=== PATIENT | male | born 1960 ===

== ENCOUNTER 2017-05-16 11:48 | Inpatient (IN) | payer OTHER ==
[2017-05-16 12:46] LABS: SQUAMOUS EPITHIAL < 1 /hpf (0-5); URINE BILIRUBIN NEGATIVE (NEGATIVE); URINE BLOOD NEGATIVE (NEGATIVE); URINE CLARITY Clear (Clear); URINE COLOR Straw (YELLOW); URINE GLUCOSE (UA) 3+ mg/dL (Normal); URINE LEUKOCYTE ESTERASE NEG Leu/uL (Negative); URINE NITRATE NEGATIVE (NEGATIVE); URINE PROTEIN NEGATIVE (NEGATIVE); URINE UROBILINOGEN NORMAL mg/dL (0.2-1.0)
--- NOTE | 2017-05-16 12:54 | RAD ---
PROCEDURE: CHEST RADIOGRAPH, 1 VIEW HISTORY: chest pain COMPARISON: None available. FINDINGS: LUNGS: Mild bibasilar atelectasis PLEURA: No pneumothorax or pleural fluid seen. CARDIOVASCULAR: Heart size is borderline/mildly enlarged. OSSEOUS STRUCTURES: No significant abnormalities. VISUALIZED UPPER ABDOMEN: Normal. OTHER FINDINGS: None. IMPRESSION: Mild bibasilar atelectasis
[2017-05-16 13:16] LABS: BASO % 0.6 % (0.0-2.0); EOS # 0.1 K/uL (0.0-0.7); EOS % 2.3 % (0.0-4.0); HEMOGLOBIN 16.2 g/dL (12.0-18.0); LYMPH % 20.8 % (20.0-40.0); MEAN CELL VOLUME 94.8 fL (80.0-94.0); MEAN CORPUSCULAR HEMOGLOBIN 33.5 pg (27.0-31.0); MEAN CORPUSCULAR HGB CONC 35.3 g/dL (33.0-37.0); MEAN PLATELET VOLUME 8.3 fL (7.2-11.7); MONO # 0.4 K/uL (0.0-0.8); MONO % 7.3 % (0.0-10.0); NEUT # 3.4 K/uL (1.8-7.0); NRBC % 0.1 % (0.0-2.0); RBC 4.84 Mil/uL (4.40-5.90); RED CELL DISTRIBUTION WIDTH 12.5 % (11.5-14.5); WHITE BLOOD COUNT 4.9 K/uL (4.8-10.8)
[2017-05-16 13:35] LABS: CALCIUM 8.7 mg/dl (8.6-10.4); GFR AFRICAN-AMERICAN > 60; GFR NON-AFRICAN AMERICAN > 60
[2017-05-16 13:36] LABS: ALT/SGPT 39 U/L (21-72); AST/SGOT 35 U/L (17-59); BLOOD UREA NITROGEN 12 mg/dL (9-20)
--- NOTE | 2017-05-16 14:20 | C.PDOC ---
History Of Present Illness 56 year old male presents to ED for evaluation of intermittent chest pain described as dull and left sided for the past several months but worse today. Pt states he feels his heart racing at times. Denies any recent cardiac work up. Otherwise, denies fever, chills, cough, shortness of breath, or recent travel. Chief Complaint (Nursing): Chest Pain History Per: Patient History/Exam Limitations: no limitations Onset/Duration Of Symptoms: Days Current Symptoms Are (Timing): Still Present Quality: Dull Associated Symptoms: denies: Nausea, Dyspnea, Diaphoresis, Syncope Modifying Factors: None Exacerbating Factors: None Alleviating Factors: None Recent travel outside of the [place]: No Additional History Per: Patient Past Medical History Reviewed: Historical Data, Nursing Documentation, Vital Signs Vital Signs: Last Vital Signs Temp 97.5 F L 05/16/17 17:00 Pulse 65 05/16/17 17:00 Resp 20 05/16/17 17:00 BP 159/87 H 05/16/17 17:00 Pulse Ox 98 05/16/17 17:00 - Medical History PMH: HTN Family History: States: Unknown Family Hx - Social History Hx Alcohol Use: Yes Hx Substance Use: No Review Of Systems Except As Marked, All Systems Reviewed And Found Negative. Constitutional: Negative for: Fever, Chills, Sweats Cardiovascular: Positive for: Chest Pain, Palpitations. Negative for: Light Headedness Respiratory: Negative for: Cough, Shortness of Breath, Sputum Gastrointestinal: Negative for: Nausea, Vomiting, Abdominal Pain Neurological: Negative for: Headache, Dizziness Physical Exam - Physical Exam Appears: Non-toxic, No Acute Distress Skin: Normal Color, Warm, Dry Head: Atraumatic, Normacephalic Eye(s): bilateral: Normal Inspection Oral Mucosa: Moist Chest: Symmetrical, No Tenderness Cardiovascular: Rhythm Regular, No Murmur Respiratory: Normal Breath Sounds, No Rales, No Rhonchi, No Wheezing Gastrointestinal/Abdominal: Soft, No Tenderness Extremity: Normal ROM, No Pedal Edema Neurological/Psych: Oriented x3, Normal Speech ED Course And Treatment - Laboratory Results Result Diagrams: 05/16/17 13:12 05/16/17 13:12 O2 Sat by Pulse Oximetry: 96 (RA) Pulse Ox Interpretation: Normal Medical Decision Making Medical Decision Making: Plan: Blood work Urinalysis CXR/EKG Aspirin Reassess Case discussed with Dr. Godoy, request to admit patient under his service. Disposition - Disposition Disposition: HOSPITALIZED Disposition Time: 13:50 Condition: STABLE - Clinical Impression Clinical Impression: Chest pain - Scribe Statement The provider has reviewed the documentation as recorded by the Teresaibed Ochoa All medical record entries made by the Teresaibde were at my direction and personally dictated by me. I have reviewed the chart and agree that the record accurately reflects my personal performance of the history, physical exam, medical decision making, and the department course for this patient. I have also personally directed, reviewed, and agree with the discharge instructions and disposition.
--- NOTE | 2017-05-16 14:47 | CP.PCM.HP ---
History of Present Illness - History of Present Illness History of Present Illness: COMPREHENSIVE HISTORY & PHYSICAL EXAM HPI 56 year old male presents to ED for evaluation of intermittent chest pain described as dull and left sided for the past several months but worse today. Pt states he feels his heart racing at times. Denies any recent cardiac work up. Otherwise, denies fever, chills, cough, PAST HIST. RECENTLY C/O CP ON EXERTION . HTN/T2DM PERSONAL HIST: Smoking. N Alcohol. N Allergy N Travel_- . FAMILY HIST : ROS : Constitutional: Negative for weight change, chills, night sweats, fatigue and usage of assist device. Eyes: Negative for redness, swelling, itching, discharge, vision changes, blurry vision, double vision, glaucoma, cataracts, Ears: Negative for hearing loss, ringing, , tinnitus, vertigo Nose: Negative for rhinorrhea, stuffiness, sniffing, itching, postnasal drip, discoloration, nasal congestion and epistaxis. Throat: Negative for throat clearing, sore throat, hoarseness, difficulty swallowing and difficulty speaking. Respiratory: Negative for cough, , sputum production, chest tightness, wheezing, pleuritic chest pain ,daytime somnolence, chronic cough, hemoptysis, snoring at night, Cardiovascular: Negative for Edema of legs, leg cramps, angina, claudication, , irregular heartbeat, Neurology: Negative for irritability, muscle weakness, numbness and tingling, seizures, tremors, migraines, slurred speech, syncope, memory loss, mood changes , recurrent headaches Gastrointestinal: Negative for difficulty swallowing, diarrhea, constipation, black stools, rectal bleeding, nausea, flatulence, reflux, poor appetite, changes in bowel habits, abdominal pain Genitourinary: Negative for frequent urination, hematuria, discharge, incontinence, urinary retention, frequent UTI, Psychiatric: Negative for depression, anxiety/panic, suicidal tendencies, Musculoskeletal: Negative for swollen joints, back pain, , neck pain, morning stiffness of joints, . Skin: Negative for rash, ulcers, itching, dry skin and pigmented lesions. P/E: Constitutional: Appears stated age and in no apparent distress. Head: Normocephalic. Ears: External ear canals patent without inflammation. Tympanic membranes intact with normal light reflex and landmark. Eyes: Pupils are central, bilaterally equal, symmetrical and reacts to light with normal movements and no icterus or pallor. Nose: External nares are patent. Mucosa is pink Mouth-Throat: Good general appearance and condition. No post-pharyngeal/oropharyngeal erythema and tonsillar hypertrophy. Good dental hygiene. Neck-Lymphatic: Neck is supple with normal ROM, no thyromegaly, lymph nodes or masses. JVD is normal with no carotid bruit. Lungs: Clear to percussion and auscultation with bilateral normal air entry. Cardiovascular: S1 and S2 are normal with no murmurs, gallops and rub. GI Exam: No hepatomegaly. Abdomen is soft and non-tender. No Organomegaly , masses or hernias are evident and bowel sounds are normal and active. Neurology: Higher function and all cranial nerves intact, with no gross motor or sensory deficit. Superficial and deep reflexes are normal with downwards planters. No cerebellar deficit with normal gait. Musculoskeletal: No tender spots with normal curvature of the spine with no swelling or restricted ROM of the small and large joints. Extremities: Homans sign absent. Intact pulses with no pitting edema, calf tenderness or skin color changes. Skin: No rash, eruptions or abnormal skin pigmentation LAB/RADIOLOGY: ASSESMENT : ACUTE CORONARY SYNDROME HTN T2DM PLAN: SEE ORDERS Present on Admission - Present on Admission Any Indicators Present on Admission: No Past Patient History - Past Social History Smoking Status: Never Smoked - CARDIAC Hx Hypertension: Yes - ENDOCRINE/METABOLIC Hx Diabetes Mellitus Type 2: Yes - PSYCHIATRIC Hx Substance Use: No Meds Allergies/Adverse Reactions: Allergies Allergy/AdvReac Type Severity Reaction Status Date / Time No Known Allergies Allergy Verified 05/16/17 11:54 Results - Vital Signs Recent Vital Signs: Last Vital Signs Temp 97.5 F L 05/16/17 11:53 Pulse 66 05/16/17 13:15 Resp 20 05/16/17 13:15 BP 176/95 H 05/16/17 13:15 Pulse Ox 96 05/16/17 14:25 - Labs Result Diagrams: 05/16/17 13:12 05/16/17 13:12 Labs: Laboratory Results - last 24 hr 05/16/17 05/16/17 05/16/17 12:41 13:12 13:12 WBC 4.9 RBC 4.84 Hgb 16.2 Hct 45.9 MCV 94.8 H MCH 33.5 H MCHC 35.3 RDW 12.5 Plt Count 163 MPV 8.3 Neut % (Auto) 69.0 Lymph % (Auto) 20.8 Reeves % (Auto) 7.3 Eos % (Auto) 2.3 Baso % (Auto) 0.6 Neut # (Auto) 3.4 Lymph # (Auto) 1.0 Reeves # (Auto) 0.4 Eos # (Auto) 0.1 Baso # (Auto) 0.0 Sodium 138 Potassium 4.3 Chloride 100 Carbon Dioxide 28 Anion Gap 14 BUN 12 Creatinine 0.8 Est GFR ( Amer) > 60 Est GFR (Non-Af Amer) > 60 Random Glucose 238 H Calcium 8.7 Total Bilirubin 0.9 AST 35 ALT 39 Alkaline Phosphatase 55 Troponin I 0.1090 Total Protein 7.8 Albumin 4.0 Globulin 3.8 Albumin/Globulin Ratio 1.0 Urine Color Straw Urine Clarity Clear Urine pH 8.0 Ur Specific [place] 1.006 Urine Protein Negative Urine Glucose (UA) 3+ H Urine Ketones Negative Urine Blood Negative Urine Nitrate Negative Urine Bilirubin Negative Urine Urobilinogen Normal Ur Leukocyte Esterase Neg Urine WBC (Auto) < 1 Urine RBC (Auto) < 1 Ur Squamous Epith Cells < 1
[2017-05-16] MEDS: (Novolin R) Insulin Human Regular 100 units/ml vial SC SCH ×2 (17:24→21:41)
[2017-05-16 20:16] LABS: CK-MB 2.4 ng/mL (0.0-3.38); TROPONIN I 0.504 ng/mL (0.00-0.120)
[2017-05-16] MEDS: Enoxaparin 30 mg Syringe SC SCH (20:42)
[2017-05-17 04:15] LABS: HDL CHOLESTEROL 39 mg/dL (30-70)
[2017-05-17 04:26] LABS: LDL CHOLESTEROL 126 mg/dL (0-129)
[2017-05-17 05:08] LABS: CK-MB 1.85 ng/mL (0.0-3.38); TROPONIN I 0.296 ng/mL (0.00-0.120)
[2017-05-17] MEDS: (Novolin R) Insulin Human Regular 100 units/ml vial SC SCH ×4 (07:22→21:12)
[2017-05-17 08:42] LABS: CK-MB 1.58 ng/mL (0.0-3.38); TROPONIN I 0.219 ng/mL (0.00-0.120)
[2017-05-17] MEDS: Enoxaparin 30 mg Syringe SC SCH ×2 (09:19→20:28)
[2017-05-17] MEDS ORDERED: Pneumococcal 23-Valent Vaccine IM ONE (10:10)
--- NOTE | 2017-05-17 15:33 | CP.PCM.PN ---
Subjective - Date & Time of Evaluation Date of Evaluation: 05/17/17 Time of Evaluation: 15:32 - Subjective Subjective: ALL SETS OF TNI ARE MILDLY ELEVATED HEMODYNAMICALLY STABLE NO CP EKG NORMAL CHECK ECHO CARDIAC CATH TUES, DUE TO MULTIPLE RISK FACTOR Objective - Vital Signs/Intake and Output Vital Signs (last 24 hours): Temp Pulse Resp BP Pulse Ox 98.9 F 89 20 148/80 97 05/17/17 08:40 05/17/17 08:40 05/17/17 08:40 05/17/17 08:40 05/17/17 08:40 Intake and Output: 05/17/17 05/17/17 11:59 23:59 Intake Total 150 Balance 150 - Medications Medications: Current Medications Aspirin (Aspirin Chewable) 81 mg PO DAILY [facility] Last Admin: 05/17/17 09:19 Dose: 81 mg Atenolol (Tenormin) 50 mg PO DAILY [facility] Last Admin: 05/17/17 09:19 Dose: 50 mg Enoxaparin Sodium (Lovenox) 30 mg SC Q12H [facility] Last Admin: 05/17/17 09:19 Dose: 30 mg Glipizide (Glucotrol) 10 mg PO DAILY [facility] Last Admin: 05/17/17 09:19 Dose: 10 mg Insulin Human Regular (Novolin R) 0 unit SC ACHS [facility] PRN Reason: Protocol Last Admin: 05/17/17 12:15 Dose: Not Given Pneumococcal Polyvalent Vaccine (Pneumovax 23 Vaccine) 0.5 ml IM .ONCE ONE Stop: 05/18/17 14:01 Repaglinide (Prandin) 2 mg PO TID [facility] Last Admin: 05/17/17 13:36 Dose: 2 mg - Labs Labs: 05/16/17 13:12 05/16/17 13:12
[2017-05-18] MEDS: (Novolin R) Insulin Human Regular 100 units/ml vial SC SCH ×4 (07:34→21:57)
[2017-05-18] MEDS: Enoxaparin 30 mg Syringe SC SCH ×2 (08:07→21:58)
[2017-05-18] MEDS ORDERED: Influenza Vaccine 60 mcg/0.5 mL SYR (4YR UP) IM ONE (10:00)
--- NOTE | 2017-05-18 13:30 | CP.PCM.PN ---
Subjective - Date & Time of Evaluation Date of Evaluation: 05/18/17 Time of Evaluation: 13:30 - Subjective Subjective: ALL SETS OF TNI ARE MILDLY ELEVATED HEMODYNAMICALLY STABLE NO CP EKG NORMAL CHECK ECHO CARDIAC CATH ON THU , DUE TO MULTIPLE RISK FACTOR Objective - Vital Signs/Intake and Output Vital Signs (last 24 hours): Temp Pulse Resp BP Pulse Ox 97.8 F 56 L 18 147/89 99 05/18/17 08:00 05/18/17 13:22 05/18/17 08:00 05/18/17 08:00 05/18/17 08:00 Intake and Output: 05/18/17 05/18/17 11:59 23:59 Intake Total 150 Balance 150 - Medications Medications: Current Medications Aspirin (Aspirin Chewable) 81 mg PO DAILY [facility] Last Admin: 05/18/17 09:34 Dose: 81 mg Atenolol (Tenormin) 50 mg PO DAILY [facility] Last Admin: 05/18/17 09:34 Dose: 50 mg Enoxaparin Sodium (Lovenox) 30 mg SC Q12H [facility] Last Admin: 05/18/17 08:07 Dose: 30 mg Glipizide (Glucotrol) 10 mg PO DAILY [facility] Last Admin: 05/18/17 09:34 Dose: 10 mg Insulin Human Regular (Novolin R) 0 unit SC ACHS [facility] PRN Reason: Protocol Last Admin: 05/18/17 12:35 Dose: Not Given Pneumococcal Polyvalent Vaccine (Pneumovax 23 Vaccine) 0.5 ml IM .ONCE ONE Stop: 05/19/17 14:01 Repaglinide (Prandin) 2 mg PO TID [facility] Last Admin: 05/18/17 09:34 Dose: 2 mg - Labs Labs: 05/16/17 13:12 05/16/17 13:12
[2017-05-18] MEDS ORDERED: Pneumococcal 23-Valent Vaccine IM ONE (14:00)
--- NOTE | 2017-05-18 19:56 | CARD ---
APPROVED REPORT EXAM: Two-dimensional and M-mode echocardiogram with Doppler and color Doppler. Other Information Quality : GoodRhythm : INDICATION Chest Pain 2D DIMENSIONS IVSd1.1 (0.7-1.1cm)LVDd4.2 (3.9-5.9cm) PWd1.1 (0.7-1.1cm)LVDs2.5 (2.5-4.0cm) FS (%) 40.4 %LVEF (%)71.5 (>50%) M-Mode DIMENSIONS Left Atrium (MM)3.52 (2.5-4.0cm)Aortic Root3.42 (2.2-3.7cm) Aortic Cusp Exc.1.77 (1.5-2.0cm) Mitral Valve MV E Spuqbkqu75.3cm/sMV A Oemzhboc60.4cm/sE/A ratio1.0 TDI E/Lateral E'0.0E/Medial E'0.0 Tricuspid Valve TR Peak Czmmwfef294kp/sTR Peak Gr.[id number] LEFT VENTRICLE The left ventricle is normal size. There is normal left ventricular wall thickness. The left ventricular function is normal. The left ventricular ejection fraction is within the normal range. No regional wall motion abnormalities noted. The left ventricular diastolic function is normal. No left ventricle thrombus noted on this study. There is no ventricular septal defect visualized. There is no left ventricular aneurysm. There is no mass noted in the left ventricle. RIGHT VENTRICLE The right ventricle is normal size. There is normal right ventricular wall thickness. The right ventricular systolic function is normal. ATRIA The left atrium size is normal. The right atrium size is normal. The interatrial septum is intact with no evidence for an atrial septal defect. AORTIC VALVE The aortic valve is normal in structure and function. No aortic regurgitation is present. There is no aortic valvular stenosis. There is no aortic valvular vegetation. MITRAL VALVE The mitral valve is normal in structure and function. There is no evidence of mitral valve prolapse. There is no mitral valve stenosis. Mitral regurgitation is mild. TRICUSPID VALVE The tricuspid valve is normal in structure and function. There is mild tricuspid regurgitation. Right ventricular systolic pressure is estimated at 30-40 mmHg. There is no tricuspid valve prolapse or vegetation. There is no tricuspid valve stenosis. PULMONIC VALVE The pulmonary valve is normal in structure and function. There is no pulmonic valvular regurgitation. There is no pulmonic valvular stenosis. GREAT VESSELS The aortic root is normal in size. The ascending aorta is normal in size. The pulmonary artery is normal. The IVC is normal in size and collapses >50% with inspiration. PERICARDIAL EFFUSION The pericardium appears normal. There is no pleural effusion. <Conclusion> The left ventricular function is normal. The left ventricular ejection fraction is within the normal range. No regional wall motion abnormalities noted. Mitral regurgitation is mild.
[2017-05-19] MEDS: (Novolin R) Insulin Human Regular 100 units/ml vial SC SCH ×4 (07:20→22:00)
[2017-05-19] MEDS: Enoxaparin 30 mg Syringe SC SCH ×2 (08:25→21:25)
--- NOTE | 2017-05-19 13:42 | CP.PCM.PN ---
Subjective - Date & Time of Evaluation Date of Evaluation: 05/19/17 Time of Evaluation: 13:42 - Subjective Subjective: PT STABLE FOR CARDIAC CATH IN AM ECHO NORMAL EF Objective - Vital Signs/Intake and Output Vital Signs (last 24 hours): Temp Pulse Resp BP Pulse Ox 97.3 F L 59 L 20 144/86 97 05/19/17 07:40 05/19/17 08:00 05/19/17 07:40 05/19/17 07:40 05/19/17 07:40 - Medications Medications: Current Medications Aspirin (Aspirin Chewable) 81 mg PO DAILY [facility] Last Admin: 05/19/17 09:56 Dose: 81 mg Atenolol (Tenormin) 50 mg PO DAILY [facility] Last Admin: 05/19/17 09:56 Dose: 50 mg Enoxaparin Sodium (Lovenox) 30 mg SC Q12H [facility] Last Admin: 05/19/17 08:25 Dose: 30 mg Glipizide (Glucotrol) 10 mg PO DAILY [facility] Last Admin: 05/19/17 09:56 Dose: 10 mg Insulin Human Regular (Novolin R) 0 unit SC [facility] PRN Reason: Protocol Last Admin: 05/19/17 12:31 Dose: Not Given Pneumococcal Polyvalent Vaccine (Pneumovax 23 Vaccine) 0.5 ml IM .ONCE ONE Stop: 05/20/17 14:01 Repaglinide (Prandin) 2 mg PO TID [facility] Last Admin: 05/19/17 09:56 Dose: 2 mg - Labs Labs: 05/16/17 13:12 05/16/17 13:12
[2017-05-19] MEDS ORDERED: Pneumococcal 23-Valent Vaccine IM ONE (14:00)
[2017-05-19] MEDS ORDERED: Influenza Vaccine 60 mcg/0.5 mL SYR (4YR UP) IM ONE (14:00)
[2017-05-20] MEDS: (Novolin R) Insulin Human Regular 100 units/ml vial SC SCH ×4 (07:17→22:00)
[2017-05-20] MEDS: Enoxaparin 30 mg Syringe SC SCH ×2 (08:52→21:38)
--- NOTE | 2017-05-20 13:14 | CP.PCM.PN ---
Subjective - Date & Time of Evaluation Date of Evaluation: 05/20/17 Time of Evaluation: 13:14 - Subjective Subjective: PT. SIGNED INFORMED CONSENT Objective - Vital Signs/Intake and Output Vital Signs (last 24 hours): Temp Pulse Resp BP Pulse Ox 97.2 F L 71 20 130/80 96 05/20/17 08:42 05/20/17 08:42 05/20/17 08:42 05/20/17 08:42 05/20/17 08:42 - Medications Medications: Current Medications Aspirin (Aspirin Chewable) 81 mg PO DAILY [facility] Last Admin: 05/20/17 09:24 Dose: 81 mg Atenolol (Tenormin) 50 mg PO DAILY [facility] Last Admin: 05/20/17 09:24 Dose: 50 mg Enoxaparin Sodium (Lovenox) 30 mg SC Q12H [facility] Last Admin: 05/20/17 08:52 Dose: Not Given Glipizide (Glucotrol) 10 mg PO DAILY [facility] Last Admin: 05/20/17 09:25 Dose: Not Given Insulin Human Regular (Novolin R) 0 unit SC [facility] PRN Reason: Protocol Last Admin: 05/20/17 07:17 Dose: Not Given Pneumococcal Polyvalent Vaccine (Pneumovax 23 Vaccine) 0.5 ml IM .ONCE ONE Stop: 05/20/17 14:01 Repaglinide (Prandin) 2 mg PO TID [facility] Last Admin: 05/20/17 09:25 Dose: 2 mg - Labs Labs: 05/16/17 13:12 05/16/17 13:12
[2017-05-20] MEDS ORDERED: Influenza Vaccine 60 mcg/0.5 mL SYR (4YR UP) IM ONE (14:00)
[2017-05-20] MEDS ORDERED: Pneumococcal 23-Valent Vaccine IM ONE (14:00)
[2017-05-20] MEDS ORDERED: Midazolam 2 MG/2 ML VIAL ONE (16:11)
[2017-05-20] MEDS ORDERED: Iodixanol 320 MG/ML 200 ML BOTTLE IV ONE (16:12)
[2017-05-20] MEDS ORDERED: DiphenhydrAMINE 50 mg/ml Inj ONE (16:20)
[2017-05-20 16:28] LABS: INR 1.1; PROTHROMBIN TIME 12.2 SECONDS (9.7-12.2)
[2017-05-21] MEDS: (Novolin R) Insulin Human Regular 100 units/ml vial SC SCH ×4 (07:33→21:59)
--- NOTE | 2017-05-21 07:46 | CARDCATH ---
PROCEDURE DATE: 05/20/2017 CARDIAC CATH REPORT HISTORY: This is an male who was admitted for chest pain and his cardiac TNI enzymes were positive. There were no any EKG changes. The patient underwent left heart cath, left heart cath was done to the right femoral artery, right femoral artery was cleaned and draped, #6 introducer sheath was inserted and Angio-Seal was used post cath. Jessica was used for right and left, and pigtail for the left angiogram. Left main is a normal vessel. There is large ramus artery, approximately has about 90% blockage. There is a mid LAD lesion which is about 80% a long segment, the rest of the LAD appears normal, the branches are normal. Circumflex is a normal vessel with no any lesions in the main trunk or the branches. Right coronary in the mid lesion, there is a long segment about 80% to 85% blockage. The rest of the right coronary is normal. LV gram shows normal wall motion with ejection fraction of about 50%. IMPRESSION: Three-vessel coronary artery disease involved in the ramus. PLAN: We will discuss with angioplasty for probably stenting and ballooning. Karla Godoy MD
[2017-05-21] MEDS: Enoxaparin 30 mg Syringe SC SCH ×2 (08:43→20:32)
--- NOTE | 2017-05-21 12:05 | CARD ---
APPROVED REPORT EKG Measurement Heart [id number] NM [id number] <Conclusion> Normal sinus rhythm Normal ECG
--- NOTE | 2017-05-21 13:36 | CP.PCM.PN ---
Subjective - Date & Time of Evaluation Date of Evaluation: 05/21/17 Time of Evaluation: 13:34 - Subjective Subjective: S/P LHC 3 V CAD WITH N EF PT NEEDS STAGED ANGIOPLASTY/STENT PT DECLINED FURTHER PROCEDURE UNTILL ANESTHESIA IS GIVEN DR. CLAY ARRANGING THE PROCEDURE IN [facility] NO FURTHER CP GROIN OK Objective - Vital Signs/Intake and Output Vital Signs (last 24 hours): Temp Pulse Resp BP Pulse Ox 98.0 F 61 20 129/85 98 05/21/17 08:28 05/21/17 11:28 05/21/17 08:28 05/21/17 08:28 05/21/17 08:28 - Medications Medications: Current Medications Aspirin (Aspirin Chewable) 81 mg PO DAILY [facility] Last Admin: 05/21/17 09:06 Dose: 81 mg Atenolol (Tenormin) 50 mg PO DAILY [facility] Last Admin: 05/21/17 09:06 Dose: 50 mg Enoxaparin Sodium (Lovenox) 30 mg SC Q12H [facility] Last Admin: 05/21/17 08:43 Dose: 30 mg Glipizide (Glucotrol) 10 mg PO DAILY [facility] Last Admin: 05/21/17 09:06 Dose: 10 mg Insulin Human Regular (Novolin R) 0 unit SC ACHS [facility] PRN Reason: Protocol Last Admin: 05/21/17 12:13 Dose: Not Given Pneumococcal Polyvalent Vaccine (Pneumovax 23 Vaccine) 0.5 ml IM .ONCE ONE Stop: 05/21/17 14:01 Last Admin: 05/21/17 13:22 Dose: 0.5 ml Repaglinide (Prandin) 2 mg PO TID [facility] Last Admin: 05/21/17 13:18 Dose: 2 mg - Labs Labs: 05/16/17 13:12 05/16/17 13:12 PT 12.2 SECONDS (9.7-12.2) 05/20/17 16:12 INR 1.1 05/20/17 16:12 APTT 32 SECONDS (21-34) 05/20/17 16:12
[2017-05-21] MEDS ORDERED: Influenza Vaccine 60 mcg/0.5 mL SYR (4YR UP) IM ONE (14:00)
[2017-05-21] MEDS ORDERED: Pneumococcal 23-Valent Vaccine IM ONE (14:00)
[2017-05-22] MEDS: (Novolin R) Insulin Human Regular 100 units/ml vial SC SCH ×4 (08:02→22:11)
[2017-05-22] MEDS: Enoxaparin 30 mg Syringe SC SCH ×2 (08:32→21:47)
--- NOTE | 2017-05-22 13:37 | CP.PCM.PN ---
Subjective - Date & Time of Evaluation Date of Evaluation: 05/22/17 Time of Evaluation: 13:37 - Subjective Subjective: S/P LHC 3 V CAD WITH N EF PT NEEDS STAGED ANGIOPLASTY/STENT PT DECLINED FURTHER PROCEDURE UNTILL ANESTHESIA IS GIVEN DR. CLAY ARRANGING THE PROCEDURE IN [facility] NO FURTHER CP GROIN [place] Objective - Vital Signs/Intake and Output Vital Signs (last 24 hours): Temp Pulse Resp BP Pulse Ox 97.9 F 68 20 136/82 95 05/22/17 08:11 05/22/17 09:10 05/22/17 08:11 05/22/17 09:10 05/22/17 08:11 - Medications Medications: Current Medications Aspirin (Aspirin Chewable) 81 mg PO DAILY [facility] Last Admin: 05/22/17 09:14 Dose: 81 mg Atenolol (Tenormin) 50 mg PO DAILY [facility] Last Admin: 05/22/17 09:14 Dose: 50 mg Enoxaparin Sodium (Lovenox) 30 mg SC Q12H [facility] Last Admin: 05/22/17 08:32 Dose: 30 mg Glipizide (Glucotrol) 10 mg PO DAILY [facility] Last Admin: 05/22/17 09:14 Dose: 10 mg Insulin Human Regular (Novolin R) 0 unit SC ACHS [facility] PRN Reason: Protocol Last Admin: 05/22/17 12:22 Dose: Not Given Repaglinide (Prandin) 2 mg PO TID [facility] Last Admin: 05/22/17 13:19 Dose: 2 mg - Labs Labs: 05/16/17 13:12 05/16/17 13:12 PT 12.2 SECONDS (9.7-12.2) 05/20/17 16:12 INR 1.1 05/20/17 16:12 APTT 32 SECONDS (21-34) 05/20/17 16:12
[2017-05-23] MEDS: (Novolin R) Insulin Human Regular 100 units/ml vial SC SCH ×4 (07:24→22:29)
[2017-05-23] MEDS: Enoxaparin 30 mg Syringe SC SCH ×2 (07:51→20:54)
--- NOTE | 2017-05-23 14:03 | CP.PCM.PN ---
Subjective - Date & Time of Evaluation Date of Evaluation: 05/23/17 Time of Evaluation: 14:03 - Subjective Subjective: S/P LHC 3 V CAD WITH N EF PT NEEDS STAGED ANGIOPLASTY/STENT PT DECLINED FURTHER PROCEDURE UNTILL ANESTHESIA IS GIVEN DR. CLAY ARRANGING THE PROCEDURE IN [facility] NO FURTHER CP GROIN OK Objective - Vital Signs/Intake and Output Vital Signs (last 24 hours): Temp Pulse Resp BP Pulse Ox 97.8 F 59 L 20 125/78 95 05/23/17 08:32 05/23/17 08:32 05/23/17 08:32 05/23/17 08:32 05/23/17 08:32 - Medications Medications: Current Medications Aspirin (Aspirin Chewable) 81 mg PO DAILY [facility] Last Admin: 05/23/17 09:32 Dose: 81 mg Atenolol (Tenormin) 50 mg PO DAILY [facility] Last Admin: 05/23/17 09:32 Dose: 50 mg Enoxaparin Sodium (Lovenox) 30 mg SC Q12H [facility] Last Admin: 05/23/17 07:51 Dose: 30 mg Glipizide (Glucotrol) 10 mg PO DAILY [facility] Last Admin: 05/23/17 09:32 Dose: 10 mg Insulin Human Regular (Novolin R) 0 unit SC ACHS [facility] PRN Reason: Protocol Last Admin: 05/23/17 12:46 Dose: Not Given Repaglinide (Prandin) 2 mg PO TID [facility] Last Admin: 05/23/17 13:50 Dose: 2 mg - Labs Labs: 05/16/17 13:12 05/16/17 13:12 PT 12.2 SECONDS (9.7-12.2) 05/20/17 16:12 INR 1.1 05/20/17 16:12 APTT 32 SECONDS (21-34) 05/20/17 16:12
[2017-05-23 14:08] LABS: BLOOD UREA NITROGEN 13 mg/dL (9-20); CALCIUM 8.7 mg/dl (8.6-10.4); GFR AFRICAN-AMERICAN > 60; GFR NON-AFRICAN AMERICAN > 60
[2017-05-24] MEDS: (Novolin R) Insulin Human Regular 100 units/ml vial SC SCH ×3 (08:39→17:51)
--- NOTE | 2017-05-24 12:16 | CP.PCM.CON ---
History of Present Illness - History of Present Illness History of Present Illness: Interventional Cardiology Consultation for PCI Patient s/p Cardiac Cath for Non STEMI History Of Present Illness 56 year old male originally presented to ED for evaluation of intermittent chest pain described as dull and left sided for the past several months but worse today. Pt states he feels his heart racing at times. Denied any prior cardiac work up before this admission. Otherwise, denies fever, chills, cough, shortness of breath, or recent travel. - Medical History PMH: HTN Family History: States: Unknown Family Hx - Social History Hx Alcohol Use: Yes Hx Substance Use: No Review Of Systems Except As Marked, All Systems Reviewed And Found Negative. Constitutional: Negative for: Fever, Chills, Sweats Cardiovascular: Positive for: Chest Pain, Palpitations. Negative for: Light Headedness Respiratory: Negative for: Cough, Shortness of Breath, Sputum Gastrointestinal: Negative for: Nausea, Vomiting, Abdominal Pain Neurological: Negative for: Headache, Dizziness Physical Exam - Physical Exam Appears: Non-toxic, No Acute Distress Skin: Normal Color, Warm, Dry Head: Atraumatic, Normacephalic Eye(s): bilateral: Normal Inspection Oral Mucosa: Moist Chest: Symmetrical, No Tenderness Cardiovascular: Rhythm Regular, No Murmur Respiratory: Normal Breath Sounds, No Rales, No Rhonchi, No Wheezing Gastrointestinal/Abdominal: Soft, No Tenderness Extremity: Normal ROM, No Pedal Edema Neurological/Psych: Oriented x3, Normal Speech Past Patient History - Past Medical History & Family History Past Medical History?: Yes - Past Social History Smoking Status: Never Smoked - CARDIAC Hx Hypertension: Yes - PULMONARY Hx Respiratory Disorders: No - NEUROLOGICAL Hx Neurological Disorder: No - HEENT Hx HEENT Problems: No - RENAL Hx Chronic Kidney Disease: No - ENDOCRINE/METABOLIC Hx Endocrine Disorders: Yes Hx Diabetes Mellitus Type 2: Yes - HEMATOLOGICAL/ONCOLOGICAL Hx Blood Disorders: No - INTEGUMENTARY Hx Dermatological Problems: No - MUSCULOSKELETAL/RHEUMATOLOGICAL Hx Musculoskeletal Disorders: No Hx Falls: No - GASTROINTESTINAL Hx Gastrointestinal Disorders: No - GENITOURINARY/GYNECOLOGICAL Hx Genitourinary Disorders: No - PSYCHIATRIC Hx Substance Use: No - SURGICAL HISTORY Hx Surgeries: Yes Other/Comment: Janneth 1987 - ANESTHESIA Hx Anesthesia: Yes Hx Anesthesia Reactions: No Meds Allergies/Adverse Reactions: Allergies Allergy/AdvReac Type Severity Reaction Status Date / Time No Known Allergies Allergy Verified 05/16/17 11:54 - Medications Medications: Current Medications Alprazolam (Xanax) 0.25 mg PO TID PRN PRN Reason: Anxiety Stop: 05/30/17 18:12 Last Admin: 05/23/17 20:54 Dose: 0.25 mg Aspirin (Aspirin Chewable) 81 mg PO DAILY [facility] Last Admin: 05/24/17 09:59 Dose: 81 mg Atenolol (Tenormin) 25 mg PO DAILY [facility] Clopidogrel Bisulfate (Plavix) 75 mg PO DAILY [facility] Famotidine (Pepcid) 20 mg PO DAILY [facility] Glipizide (Glucotrol) 10 mg PO DAILY [facility] Last Admin: 05/24/17 10:00 Dose: Not Given Heparin Sodium (Porcine) (Heparin) 5,000 units SC Q8 [facility] Sodium Chloride (Sodium Chloride 0.9%) 1,000 mls @ 70 mls/hr IV .[id number] [facility] Stop: 05/25/17 23:59 Insulin Human Regular (Novolin R) 0 unit SC ACHS [facility] PRN Reason: Protocol Last Admin: 05/24/17 08:39 Dose: Not Given Losartan Potassium (Cozaar) 25 mg PO DAILY [facility] Repaglinide (Prandin) 2 mg PO TID [facility] Last Admin: 05/24/17 09:57 Dose: Not Given Rosuvastatin Calcium (Crestor) 20 mg PO [facility] Results - Vital Signs Recent Vital Signs: Last Vital Signs Temp 97.8 F 05/23/17 16:56 Pulse 52 L 05/24/17 04:11 Resp 20 05/23/17 16:56 BP 129/83 05/23/17 16:56 Pulse Ox 98 05/23/17 16:56 - Labs Result Diagrams: 05/16/17 13:12 05/23/17 13:50 Labs: Laboratory Results - last 24 hr 05/23/17 05/23/17 05/23/17 13:50 16:48 22:22 Sodium 137 Potassium 3.7 Chloride 98 Carbon Dioxide 30 Anion Gap 13 BUN 13 Creatinine 1.0 Est GFR ( Amer) > 60 Est GFR (Non-Af Amer) > 60 POC Glucose (mg/dL) 74 100 Random Glucose 128 H Calcium 8.7 05/24/17 05/24/17 06:39 11:37 Sodium Potassium Chloride Carbon Dioxide Anion Gap BUN Creatinine Est GFR ( Amer) Est GFR (Non-Af Amer) POC Glucose (mg/dL) 104 167 H Random Glucose Calcium Assessment & Plan - Assessment and Plan (Free Text) Assessment: 1. Acute Coronary syndrome s/p Cath 2. CAD Triple vessel focal disease. Normal LV function 3. HTN 4. DM 2 5. Hyperlipidemia Patient refuses Open heart surgery. The lesions are focal and easily amenable for angioplasty and stenting. Patient is also young. As per patient wishes and anatomical favorability and age of the patient will pursue PCI Patient scheduled for PCI at 3pm at [place] on Thursday
[2017-05-24] MEDS: Sodium Chloride 0.9% 1,000 ML IV SCH (13:00)
--- NOTE | 2017-05-24 15:31 | CP.PCM.PN ---
Subjective - Date & Time of Evaluation Date of Evaluation: 05/24/17 Time of Evaluation: 15:25 - Subjective Subjective: HAD PALPITATION LAST NITE REVIEW OF THE RHYTHM SHOWED A. FIB WITH RVR MOST OF BASE LINE PT IS S JP PT ON D/C WILL NEED DAPT AND NOAC [id number] 2 Objective - Vital Signs/Intake and Output Vital Signs (last 24 hours): Temp Pulse Resp BP Pulse Ox 97.8 F 52 L 20 129/83 98 05/23/17 16:56 05/24/17 04:11 05/23/17 16:56 05/23/17 16:56 05/23/17 16:56 - Medications Medications: Current Medications Alprazolam (Xanax) 0.25 mg PO TID PRN PRN Reason: Anxiety Stop: 05/30/17 18:12 Last Admin: 05/23/17 20:54 Dose: 0.25 mg Aspirin (Aspirin Chewable) 81 mg PO DAILY [facility] Last Admin: 05/24/17 09:59 Dose: 81 mg Atenolol (Tenormin) 25 mg PO DAILY [facility] Clopidogrel Bisulfate (Plavix) 75 mg PO DAILY [facility] Last Admin: 05/24/17 14:26 Dose: 75 mg Famotidine (Pepcid) 20 mg PO DAILY [facility] Last Admin: 05/24/17 14:26 Dose: 20 mg Glipizide (Glucotrol) 10 mg PO DAILY [facility] Last Admin: 05/24/17 10:00 Dose: Not Given Heparin Sodium (Porcine) (Heparin) 5,000 units SC Q8 [facility] Last Admin: 05/24/17 14:34 Dose: 5,000 units Sodium Chloride (Sodium Chloride 0.9%) 1,000 mls @ 70 mls/hr IV .[id number] [facility] Stop: 05/25/17 23:59 Last Admin: 05/24/17 13:00 Dose: 70 mls/hr Insulin Human Regular (Novolin R) 0 unit SC ACHS [facility] PRN Reason: Protocol Last Admin: 05/24/17 12:30 Dose: Not Given Losartan Potassium (Cozaar) 25 mg PO DAILY [facility] Repaglinide (Prandin) 2 mg PO TID [facility] Last Admin: 05/24/17 14:27 Dose: Not Given Rosuvastatin Calcium (Crestor) 20 mg PO HS [facility] - Labs Labs: 05/16/17 13:12 05/23/17 13:50 PT 12.2 SECONDS (9.7-12.2) 05/20/17 16:12 INR 1.1 05/20/17 16:12 APTT 32 SECONDS (21-34) 05/20/17 16:12
--- NOTE | 2017-05-24 19:49 | CP.PCM.PN ---
Subjective - Date & Time of Evaluation Date of Evaluation: 05/24/17 Time of Evaluation: 16:20 - Subjective Subjective: Patient seen and evaluated Denies chest pain and dyspnea For PCI tomorrow Patient signed EMTALA form Objective - Vital Signs/Intake and Output Vital Signs (last 24 hours): Temp Pulse Resp BP Pulse Ox 97.8 F 65 20 127/82 95 05/24/17 17:30 05/24/17 17:30 05/24/17 17:30 05/24/17 17:30 05/24/17 17:30 - Medications Medications: Current Medications Alprazolam (Xanax) 0.25 mg PO TID PRN PRN Reason: Anxiety Stop: 05/30/17 18:12 Last Admin: 05/23/17 20:54 Dose: 0.25 mg Aspirin (Aspirin Chewable) 81 mg PO DAILY [facility] Last Admin: 05/24/17 09:59 Dose: 81 mg Atenolol (Tenormin) 25 mg PO DAILY [facility] Clopidogrel Bisulfate (Plavix) 75 mg PO DAILY [facility] Last Admin: 05/24/17 14:26 Dose: 75 mg Famotidine (Pepcid) 20 mg PO DAILY [facility] Last Admin: 05/24/17 14:26 Dose: 20 mg Glipizide (Glucotrol) 10 mg PO DAILY [facility] Last Admin: 05/24/17 10:00 Dose: Not Given Heparin Sodium (Porcine) (Heparin) 5,000 units SC Q8 [facility] Last Admin: 05/24/17 14:34 Dose: 5,000 units Sodium Chloride (Sodium Chloride 0.9%) 1,000 mls @ 70 mls/hr IV .[id number] [facility] Stop: 05/25/17 23:59 Last Admin: 05/24/17 13:00 Dose: 70 mls/hr Insulin Human Regular (Novolin R) 0 unit SC ACHS [facility] PRN Reason: Protocol Last Admin: 05/24/17 17:51 Dose: Not Given Losartan Potassium (Cozaar) 25 mg PO DAILY [facility] Repaglinide (Prandin) 2 mg PO TID [facility] Last Admin: 05/24/17 17:52 Dose: Not Given Rosuvastatin Calcium (Crestor) 20 mg PO HS [facility] - Labs Labs: 05/16/17 13:12 05/23/17 13:50 PT 12.2 SECONDS (9.7-12.2) 05/20/17 16:12 INR 1.1 05/20/17 16:12 APTT 32 SECONDS (21-34) 05/20/17 16:12
[2017-05-25] MEDS: Sodium Chloride 0.9% 1,000 ML IV SCH (06:08)
[2017-05-25 07:35] LABS: HEMOGLOBIN 14.6 g/dL (12.0-18.0); MEAN CELL VOLUME 95.7 fL (80.0-94.0); MEAN CORPUSCULAR HEMOGLOBIN 32.8 pg (27.0-31.0); MEAN CORPUSCULAR HGB CONC 34.2 g/dL (33.0-37.0); MEAN PLATELET VOLUME 8.5 fL (7.2-11.7); RBC 4.46 Mil/uL (4.40-5.90); RED CELL DISTRIBUTION WIDTH 12.2 % (11.5-14.5); WHITE BLOOD COUNT 4.3 K/uL (4.8-10.8)
[2017-05-25 07:37] LABS: BLOOD UREA NITROGEN 13 mg/dL (9-20); CALCIUM 8.2 mg/dl (8.6-10.4); GFR AFRICAN-AMERICAN > 60; GFR NON-AFRICAN AMERICAN > 60; HDL CHOLESTEROL 28 mg/dL (30-70)
[2017-05-25 07:38] LABS: INR 1.1; PROTHROMBIN TIME 12.2 SECONDS (9.7-12.2)
[2017-05-25 07:48] LABS: LDL CHOLESTEROL 108 mg/dL (0-129)
[2017-05-25] MEDS: (Novolin R) Insulin Human Regular 100 units/ml vial SC SCH ×4 (08:17→22:00)
--- NOTE | 2017-05-25 14:00 | CP.PCM.PN ---
Subjective - Date & Time of Evaluation Date of Evaluation: 05/25/17 Time of Evaluation: 14:00 - Subjective Subjective: PT OUT OF FLOOR FOR ANGIOPLASTY CHART REVIEWED NO FURTHER A. FIB Objective - Vital Signs/Intake and Output Vital Signs (last 24 hours): Temp Pulse Resp BP Pulse Ox 97.7 F 62 20 167/90 H 97 05/25/17 12:50 05/25/17 13:45 05/25/17 12:50 05/25/17 13:45 05/25/17 12:50 - Medications Medications: Current Medications Alprazolam (Xanax) 0.25 mg PO TID PRN PRN Reason: Anxiety Stop: 05/30/17 18:12 Last Admin: 05/24/17 21:36 Dose: 0.25 mg Aspirin (Aspirin Chewable) 81 mg PO DAILY [facility] Last Admin: 05/25/17 10:41 Dose: 81 mg Atenolol (Tenormin) 25 mg PO DAILY [facility] Last Admin: 05/25/17 10:41 Dose: 25 mg Clopidogrel Bisulfate (Plavix) 75 mg PO DAILY [facility] Last Admin: 05/25/17 10:41 Dose: 75 mg Famotidine (Pepcid) 20 mg PO DAILY [facility] Last Admin: 05/25/17 10:42 Dose: Not Given Glipizide (Glucotrol) 10 mg PO DAILY [facility] Last Admin: 05/25/17 10:42 Dose: Not Given Heparin Sodium (Porcine) (Heparin) 5,000 units SC Q8 [facility] Last Admin: 05/24/17 21:36 Dose: 5,000 units Sodium Chloride (Sodium Chloride 0.9%) 1,000 mls @ 70 mls/hr IV .[id number] [facility] Stop: 05/25/17 23:59 Last Admin: 05/25/17 06:08 Dose: 70 mls/hr Insulin Human Regular (Novolin R) 0 unit SC ACHS [facility] PRN Reason: Protocol Last Admin: 05/25/17 12:12 Dose: Not Given Losartan Potassium (Cozaar) 25 mg PO DAILY [facility] Last Admin: 05/25/17 10:41 Dose: 25 mg Repaglinide (Prandin) 2 mg PO TID [facility] Last Admin: 05/25/17 10:41 Dose: Not Given Rosuvastatin Calcium (Crestor) 20 mg PO HS [facility] Last Admin: 05/24/17 21:37 Dose: 20 mg - Labs Labs: 05/25/17 07:04 05/25/17 07:04 PT 12.2 SECONDS (9.7-12.2) 05/25/17 07:04 INR 1.1 05/25/17 07:04 APTT 32 SECONDS (21-34) 05/20/17 16:12
[2017-05-25] MEDS ORDERED: HYDROmorphone 0.5 mg/0.5 ml ISec IVP PRN (17:40)
--- NOTE | 2017-05-25 17:49 | CP.PCM.PN ---
Subjective - Date & Time of Evaluation Date of Evaluation: 05/25/17 Time of Evaluation: 17:47 - Subjective Subjective: Patient s/p LAD and Ramus stenting (JORGE) RCA stent as out patient ASA 81, Plavix 75, Statins, B blockers and ARBs IVF for 12 hrs Resume diet OOB to ambulate after 10pm tonight Possible d/c tomorrow or day after Paraxysmal A Fib (Will d/w Dr. Godoy) Objective - Vital Signs/Intake and Output Vital Signs (last 24 hours): Temp Pulse Resp BP Pulse Ox 97.7 F 60 20 135/85 99 05/25/17 14:20 05/25/17 14:20 05/25/17 14:20 05/25/17 14:20 05/25/17 14:20 - Medications Medications: Current Medications Alprazolam (Xanax) 0.25 mg PO TID PRN PRN Reason: Anxiety Stop: 05/30/17 18:12 Last Admin: 05/24/17 21:36 Dose: 0.25 mg Aspirin (Aspirin Chewable) 81 mg PO DAILY [facility] Last Admin: 05/25/17 10:41 Dose: 81 mg Atenolol (Tenormin) 25 mg PO DAILY [facility] Last Admin: 05/25/17 10:41 Dose: 25 mg Clopidogrel Bisulfate (Plavix) 75 mg PO DAILY [facility] Last Admin: 05/25/17 10:41 Dose: 75 mg Famotidine (Pepcid) 20 mg PO DAILY [facility] Last Admin: 05/25/17 10:42 Dose: Not Given Glipizide (Glucotrol) 10 mg PO DAILY [facility] Last Admin: 05/25/17 10:42 Dose: Not Given Heparin Sodium (Porcine) (Heparin) 5,000 units SC Q8 [facility] Last Admin: 05/25/17 14:11 Dose: Not Given Hydromorphone HCl (Dilaudid) 0.5 mg IVP Q15M PRN PRN Reason: Pain, moderate (4-7) Stop: 05/25/17 19:40 Sodium Chloride (Sodium Chloride 0.9%) 1,000 mls @ 70 mls/hr IV .[id number] [facility] Stop: 05/25/17 23:59 Last Admin: 05/25/17 06:08 Dose: 70 mls/hr Insulin Human Regular (Novolin R) 0 unit SC ACHS [facility] PRN Reason: Protocol Last Admin: 05/25/17 12:12 Dose: Not Given Losartan Potassium (Cozaar) 25 mg PO DAILY [facility] Last Admin: 05/25/17 10:41 Dose: 25 mg Metoclopramide HCl (Reglan) 10 mg IVP ONCE PRN PRN Reason: Nausea/Vomiting Stop: 05/25/17 19:40 Ondansetron HCl (Zofran Inj) 4 mg IVP ONCE PRN PRN Reason: Nausea/Vomiting Stop: 05/25/17 19:40 Repaglinide (Prandin) 2 mg PO TID [facility] Last Admin: 05/25/17 14:11 Dose: Not Given Rosuvastatin Calcium (Crestor) 20 mg PO HS [facility] Last Admin: 05/24/17 21:37 Dose: 20 mg - Labs Labs: 05/25/17 07:04 05/25/17 07:04 PT 12.2 SECONDS (9.7-12.2) 05/25/17 07:04 INR 1.1 05/25/17 07:04 APTT 32 SECONDS (21-34) 05/20/17 16:12
--- NOTE | 2017-05-25 21:04 | CARD ---
APPROVED REPORT EKG Measurement Heart [id number] VT [id number] [id number] <Conclusion> Normal sinus rhythm Normal ECG
[2017-05-26 07:23] LABS: HEMOGLOBIN 14.2 g/dL (12.0-18.0); MEAN CELL VOLUME 94.5 fL (80.0-94.0); MEAN CORPUSCULAR HEMOGLOBIN 33.3 pg (27.0-31.0); MEAN CORPUSCULAR HGB CONC 35.3 g/dL (33.0-37.0); MEAN PLATELET VOLUME 8.2 fL (7.2-11.7); RBC 4.26 Mil/uL (4.40-5.90); RED CELL DISTRIBUTION WIDTH 12.4 % (11.5-14.5); WHITE BLOOD COUNT 4.8 K/uL (4.8-10.8)
[2017-05-26 07:42] LABS: BLOOD UREA NITROGEN 12 mg/dL (9-20); CALCIUM 8.7 mg/dl (8.6-10.4); GFR AFRICAN-AMERICAN > 60; GFR NON-AFRICAN AMERICAN > 60
[2017-05-26] MEDS: (Novolin R) Insulin Human Regular 100 units/ml vial SC SCH ×3 (08:12→16:46)
[2017-05-26] MEDS ORDERED: Enoxaparin 80 mg Syringe SC SCH (10:00)
--- NOTE | 2017-05-26 13:45 | CP.PCM.DIS ---
Provider - Provider Date of Admission: 05/17/17 14:33 Attending physician: Karla Godoy MD Time Spent in preparation of Discharge (in minutes): 30 Hospital Course - Lab Results Lab Results: Most Recent Lab Values WBC 4.8 K/uL (4.8-10.8) 05/26/17 07:06 RBC 4.26 Mil/uL (4.40-5.90) L 05/26/17 07:06 Hgb 14.2 g/dL (12.0-18.0) 05/26/17 07:06 Hct 40.3 % (35.0-51.0) 05/26/17 07:06 MCV 94.5 fL (80.0-94.0) H 05/26/17 07:06 MCH 33.3 pg (27.0-31.0) H 05/26/17 07:06 MCHC 35.3 g/dL (33.0-37.0) 05/26/17 07:06 RDW 12.4 % (11.5-14.5) 05/26/17 07:06 Plt Count 173 K/uL (130-400) 05/26/17 07:06 MPV 8.2 fL (7.2-11.7) 05/26/17 07:06 Neut % (Auto) 69.0 % (50.0-75.0) 05/16/17 13:12 Lymph % (Auto) 20.8 % (20.0-40.0) 05/16/17 13:12 [place] % (Auto) 7.3 % (0.0-10.0) 05/16/17 13:12 Eos % (Auto) 2.3 % (0.0-4.0) 05/16/17 13:12 Baso % (Auto) 0.6 % (0.0-2.0) 05/16/17 13:12 Neut # (Auto) 3.4 K/uL (1.8-7.0) 05/16/17 13:12 Lymph # (Auto) 1.0 K/uL (1.0-4.3) 05/16/17 13:12 [place] # (Auto) 0.4 K/uL (0.0-0.8) 05/16/17 13:12 Eos # (Auto) 0.1 K/uL (0.0-0.7) 05/16/17 13:12 Baso # (Auto) 0.0 K/uL (0.0-0.2) 05/16/17 13:12 PT 12.2 SECONDS (9.7-12.2) 05/25/17 07:04 INR 1.1 05/25/17 07:04 APTT 32 SECONDS (21-34) 05/20/17 16:12 Sodium 137 mmol/L (132-148) 05/26/17 07:06 Potassium 4.0 mmol/L (3.6-5.2) 05/26/17 07:06 Chloride 101 mmol/L (98-107) 05/26/17 07:06 Carbon Dioxide 29 mmol/L (22-30) 05/26/17 07:06 Anion Gap 11 (10-20) 05/26/17 07:06 BUN 12 mg/dL (9-20) 05/26/17 07:06 Creatinine 1.0 mg/dL (0.8-1.5) 05/26/17 07:06 Est GFR ( Amer) > 60 05/26/17 07:06 Est GFR (Non-Af Amer) > 60 05/26/17 07:06 POC Glucose (mg/dL) 153 mg/dL (65-110) H 05/26/17 12:06 Random Glucose 114 mg/dL (75-110) H 05/26/17 07:06 Hemoglobin A1c 6.5 % (4.2-6.5) 05/25/17 07:04 Calcium 8.7 mg/dl (8.6-10.4) 05/26/17 07:06 Total Bilirubin 0.9 mg/dL (0.2-1.3) 05/16/17 13:12 AST 35 U/L (17-59) 05/16/17 13:12 ALT 39 U/L (21-72) 05/16/17 13:12 Alkaline Phosphatase 55 U/L (38-126) 05/16/17 13:12 Total Creatine Kinase 87 U/L (55-170) 05/17/17 07:25 CK-MB (Mass) 1.58 ng/mL (0.0-3.38) 05/17/17 07:25 Troponin I 0.2190 ng/mL (0.00-0.120) H* 05/17/17 07:25 Total Protein 7.8 g/dL (6.3-8.3) 05/16/17 13:12 Albumin 4.0 g/dL (3.5-5.0) 05/16/17 13:12 Globulin 3.8 gm/dL (2.2-3.9) 05/16/17 13:12 Albumin/Globulin Ratio 1.0 (1.0-2.1) 05/16/17 13:12 Triglycerides 107 mg/dL (0-149) 05/25/17 07:04 Cholesterol 151 mg/dL (0-199) 05/25/17 07:04 LDL Cholesterol Direct 108 mg/dL (0-129) 05/25/17 07:04 HDL Cholesterol 28 mg/dL (30-70) L 05/25/17 07:04 Urine Color Straw (YELLOW) 05/16/17 12:41 Urine Clarity Clear (Clear) 05/16/17 12:41 Urine pH 8.0 (5.0-8.0) 05/16/17 12:41 Ur Specific [place] 1.006 (1.003-1.030) 05/16/17 12:41 Urine Protein Negative mg/dL (NEGATIVE) 05/16/17 12:41 Urine Glucose (UA) 3+ mg/dL (Normal) H 05/16/17 12:41 Urine Ketones Negative mg/dL (NEGATIVE) 05/16/17 12:41 Urine Blood Negative (NEGATIVE) 05/16/17 12:41 Urine Nitrate Negative (NEGATIVE) 05/16/17 12:41 Urine Bilirubin Negative (NEGATIVE) 05/16/17 12:41 Urine Urobilinogen Normal mg/dL (0.2-1.0) 05/16/17 12:41 Ur Leukocyte Esterase Neg Penny/uL (Negative) 05/16/17 12:41 Urine WBC (Auto) < 1 /hpf (0-5) 05/16/17 12:41 Urine RBC (Auto) < 1 /hpf (0-3) 05/16/17 12:41 Ur Squamous Epith Cells < 1 /hpf (0-5) 05/16/17 12:41 - Hospital Course Hospital Course: 56 year old male presents to ED for evaluation of intermittent chest pain described as dull and left sided for the past several months but worse today. Pt states he feels his heart racing at times. Denies any recent cardiac work up. Otherwise, denies fever, chills, cough, PAST HIST. RECENTLY C/O CP ON EXERTION . HTN/T2DM ALL TNI WERE POS PT HAD A. FIB PAROXYSMAL CATH SHOWED PRO LAD , RAMUS AND RCA LESION PT HAD JORGE IN LAD AND RAMUS , RCA LATER NOR LV EF D/C ON ASA,BRILLANTA,LOPRESSOR,SMALL DOSE XARELTO 10 Discharge Plan - Follow Up Plan Condition: STABLE Disposition: HOME/ ROUTINE
[2017-05-26 15:56] VITALS: BP 155/89; PULSE 71; RESP 18; TEMP 97.6; O2SAT 100
== END 2017-05-26 20:51 | disposition home or self-care (01) | DRG 247 ==
LOC: C.ER 11:48 → C.9E 13:53 → C.6T 15:54 → OBSVTOIN 05-17 14:33
PROVIDERS: ADMIT Internal Medicine Cardiovascular Disease; ATTEND Internal Medicine Cardiovascular Disease
PROC: 4A023N7 Measurement of Cardiac Sampling and Pressure, Left Heart, Percutaneous Approach (ICD-10-PCS; 2017-05-20)
PROC: B2111ZZ Fluoroscopy of Multiple Coronary Arteries using Low Osmolar Contrast (ICD-10-PCS; 2017-05-20)
PROC: B2151ZZ Fluoroscopy of Left Heart using Low Osmolar Contrast (ICD-10-PCS; 2017-05-20)
PROC: 027135Z Dilation of Coronary Artery, Two Arteries with Two Drug-eluting Intraluminal Devices, Percutaneous Approach (ICD-10-PCS; principal; 2017-05-25)
DX: I21.4 Non-ST elevation (NSTEMI) myocardial infarction (principal); I48.0 Paroxysmal atrial fibrillation; E11.9 Type 2 diabetes mellitus without complications; I25.10 Atherosclerotic heart disease of native coronary artery without angina pectoris; I10 Essential (primary) hypertension; E78.5 Hyperlipidemia, unspecified

== ENCOUNTER 2017-06-30 19:12 | Inpatient (IN) | payer OTHER ==
[2017-06-30 19:24] VITALS: BMI 30.2
--- NOTE | 2017-06-30 19:32 | C.PDOC ---
History Of Present Illness 56 year old male with PMHx of CAD with 2 stents, HTN, non insulin dependant DM presents to the ED for evaluation of left sided numbness. Patient reports he woke up at 10:00 and noticed left sided face numbness patient reports he felt as if his face had novacaine and felt heavy. Patient reports he had difficulty keeping fluids in his mouth, closing his left eye. Patient denies speech impairment, headache, weakness in one side of his body, numbness, headache, trauma, injury, fall. Patient presented to the ED 10 hours after onset of symptoms. Chief Complaint (Nursing): Weakness/Neurological Deficit History Per: Patient History/Exam Limitations: no limitations Onset/Duration Of Symptoms: Hrs Current Symptoms Are (Timing): Still Present Associated Symptoms Preceding Syncopal Episode: No Predromal Symptoms (Sudden Onset) Seizure Or Post-ictal Symptoms: None Fall Associated With With Symptoms: No Recent travel outside of the [place]: No Additional History Per: Patient - Symptoms Of CVA Associated Symptoms: denies: Impaired Speech, Seizure Activity, New Vision Deficit(Left), Decreased Ability To Walk, New Confusion Character Of Deficits: Left: Weakness, Face: Weakness Recent Aspirin Use: No Current Coumadin Use?: No Recent Head Trauma: No Past Medical History Reviewed: Historical Data, Nursing Documentation, Vital Signs Vital Signs: Last Vital Signs Temp 98.2 F 06/30/17 19:24 Pulse 56 L 06/30/17 21:47 Resp 20 06/30/17 21:47 BP 151/82 H 06/30/17 21:47 Pulse Ox 98 06/30/17 21:47 - Medical History PMH: HTN Denies: Chronic Kidney Disease Surgical History: No Surg Hx - [facility] Procedures DILATION OF 2 COR ART WITH 2 DRUG-ELUT, PERC APPROACH (05/17/17) FLUOROSCOPY OF LEFT HEART USING LOW OSMOLAR CONTRAST (05/17/17) FLUOROSCOPY OF MULT COR ART USING L OSM CONTRAST (05/17/17) MEASURE OF CARDIAC SAMPL & PRESSURE, L HEART, PERC APPROACH (05/17/17) Family History: States: Unknown Family Hx - Social History Hx Alcohol Use: Yes Hx Substance Use: No Review Of Systems Constitutional: Negative for: Fever, Chills Cardiovascular: Negative for: Chest Pain Respiratory: Negative for: Cough, Shortness of Breath Gastrointestinal: Negative for: Nausea, Vomiting, Abdominal Pain Musculoskeletal: Negative for: Neck Pain Skin: Negative for: Rash Neurological: Positive for: Weakness, Numbness. Negative for: Headache, Dizziness Physical Exam - Physical Exam Appears: Non-toxic, No Acute Distress Skin: Normal Color, Warm, Dry Head: Atraumatic, Normacephalic, Other (smile asymetric left sided droop, decrease nasal and labial fold ) Eye(s): bilateral: Normal Inspection, PERRL, EOMI Nose: No Discharge, Other (decreased nasal fold left side) Oral Mucosa: Moist Tongue: Other (midline) Lips: Other (left sided droop) Neck: Normal ROM, Supple Chest: Symmetrical Cardiovascular: Rhythm Regular, No Murmur Respiratory: Normal Breath Sounds, No Rales, No Rhonchi, No Wheezing Gastrointestinal/Abdominal: Soft, No Tenderness, No Guarding, No Rebound, Other (old cholecystectomy scar) Extremity: Normal ROM, No Tenderness, No Swelling Neurological/Psych: Oriented x3, Normal Speech, Normal Cranial Nerves (left facial droopable to forrow brows suggesting UMN lesions), Normal Motor, Normal Sensation Gait: Steady Other Neurological Findings: Facial Palsy, Forehead Sparing, No Tongue Deviation Extremity: Right: No Drift, Left: No Drift ED Course And Treatment - Laboratory Results Result Diagrams: 06/30/17 19:31 06/30/17 19:31 Lab Interpretation: Normal ECG: Interpreted By Me, Viewed By Md ECG Rhythm: Sinus Rhythm ECG Interpretation: Normal Interpretation Of ECG: No ectopy beat, normal ST or T waves, Rate From EC (BPM) O2 Sat by Pulse Oximetry: 98 (On RA) Pulse Ox Interpretation: Normal - CT Scan/US CT head Other Rad Studies (CT/US): Read By Radiologist, Radiology Report Reviewed CT/US Interpretation: Addendum created by Ivanna Lopez MD on 06/30/2017 7:52 PM Eastern Time ([place]). Findings were discussed with Sanna Gordon at 7:52 PM EDT on 06/30/2017. Initial Report created on 06/30/2017 7:49 PM Eastern Time ([place]). EXAM: CT Head Without Intravenous Contrast. EXAM DATE/TIME: 06/30/2017 7:29 PM. CLINICAL HISTORY: 56 years old, male; Signs and symptoms; Other: Right facial droop; Additional info: Code stroke alert. bed 5. TECHNIQUE: Axial computed tomography images of the head/brain without intravenous contrast. All CT scans at. this facility use one or more dose reduction techniques, viz.: automated exposure control; ma/kV. adjustment per patient size (including targeted exams where dose is matched to indication; i.e. head);. or iterative reconstruction technique. COMPARISON: There are no prior studies for comparison. FINDINGS:Brain: Ventricles are normal in size. There is no midline shift. There is mild prominence of sulci and. gyri. There are no intra-axial or extra-axial mass lesions or areas of hemorrhage. There are no. abnormal fluid collections. Arauz-white differentiation is maintained. Ventricles: See above. Bones: Cranial vault is intact. Soft tissues: unremarkable. Sinuses: There is no acute sinusitis. Ears and mastoids: Middle ears and mastoids are unremarkable. Orbits: Orbital contents are unremarkable. IMPRESSION: No acute intracranial abnormality. Thank you for allowing us to participate in the care of your patient. Dictated and Authenticated by: Ivanna Zarate MD. 06/30/2017 7:49 PM Eastern Time ([place] & [place]) CT neck Other Rad Studies (CT/US): Read By Radiologist, Radiology Report Reviewed CT/US Interpretation: EXAM: CT Angiography Neck With Intravenous Contrast. EXAM DATE/TIME: 06/30/2017 8:11 PM. CLINICAL HISTORY: 56 years old, male; Signs and symptoms; Other: Right facial droop. TECHNIQUE: Axial computed tomographic angiography images of the neck with intravenous contrast using CT. angiography protocol. All CT scans at this facility use one or more dose reduction techniques, viz.: automated exposure control; ma/kV adjustment per patient size (including targeted exams where. dose is matched to indication; i.e. head); or iterative reconstruction technique. CONTRAST: 0 mL of visipaque 320 administered intravenously. COMPARISON: CT - HEAD W/O (CODE STROKE) 2017-06-30 19:35. FINDINGS: VASCULATURE: Right common carotid artery : Unremarkable. No significant stenosis. No dissection or occlusion. Right internal carotid artery: Unremarkable. Extracranial segment is patent with no significant. stenosis. No dissection or occlusion. Right external carotid artery: Unremarkable. No occlusion. Right vertebral artery: Unremarkable. No significant stenosis. No dissection or occlusion. Left common carotid artery: Unremarkable. No significant stenosis. No dissection or occlusion. Left internal carotid artery: Unremarkable. Extracranial segment is patent with no significant. stenosis. No dissection or occlusion. Left external carotid artery: Unremarkable. No occlusion. Left vertebral artery: Unremarkable. No significant stenosis. No dissection or occlusion.NECK: Bones/joints: No acute fracture. No dislocation. Soft tissues: Unremarkable as visualized. No mass. CAROTID STENOSIS REFERENCE USING NASCET CRITERIA: % ICA stenosis = (1 - narrowest ICA diameter/diameter of distal cervical ICA) x 100. Mild - <50% stenosis. Moderate - 50-69% stenosis. Severe - 70-94% stenosis. Near occlusion - 95-99% stenosis. Occluded - 100% stenosis. IMPRESSION: No acute findings. Thank you for allowing us to participate in the care of your patient. Dictated and Authenticated by: Brinda Dillon MD. 06/30/2017 9: 30 PM Eastern Time ([place]) CTA neck Other Rad Studies (CT/US): Read By Radiologist, Radiology Report Reviewed CT/US Interpretation: EXAM: CT Angiography Head With Intravenous Contrast. EXAM DATE/TIME: 06/30/2017 8:11 PM. CLINICAL HISTORY: 56 years old, male; Signs and symptoms; Other: Right facial droop. TECHNIQUE: Axial computed tomographic angiography images of the head with intravenous contrast using CT. angiography protocol. All CT scans at this facility use one or more dose reduction techniques, viz.: automated exposure control; ma/kV adjustment per patient size (including targeted exams where. dose is matched to indication; i.e. head); or iterative reconstruction technique. CONTRAST: 100 mL of visipaque 320 administered intravenously. COMPARISON: CT - HEAD W/O (CODE STROKE) 2017-06-30 19:35. FINDINGS: Right internal carotid artery: No acute findings. Intracranial segment is patent with no significant. stenosis. No aneurysm. Right anterior cerebral artery: Unremarkable. No occlusion or significant stenosis. No aneurysm. Right middle cerebral artery: Unremarkable. No occlusion or significant stenosis. No aneurysm. Right posterior cerebral artery: Unremarkable. No occlusion or significant stenosis. No aneurysm. Right vertebral artery: Unremarkable as visualized. Left internal carotid artery: No acute findings. Intracranial segment is patent with no significant. stenosis. No aneurysm. Left anterior cerebral artery: Unremarkable. No occlusion or significant stenosis. No aneurysm. Left middle cerebral artery: Unremarkable. No occlusion or significant stenosis. No aneurysm. Left posterior cerebral artery: Unremarkable. No occlusion or significant stenosis. No aneurysm. Left vertebral artery: Unremarkable as visualized.Basilar artery: Unremarkable. No occlusion or significant stenosis. No aneurysm. Sinuses: There is polypoid mucosal thickening in the paranasal sinuses. IMPRESSION: No acute findings. Thank you for allowing us to participate in the care of your patient. Dictated and Authenticated by: Brinda Dillon MD. 06/30/2017 9:29 PM Eastern Time ( [place]) NIHSS Stroke Scale 2 - Date/Time Evaluation Performed Date Performed: 06/30/17 Time Performed: 19:53 - How Severe is the Stroke Level of Consciousness: 0=Alert LOC to Questions: 0=Both comments correct LOC to commands: 0=Obeys both correctly Best Gaze: 0=Normal Visual: 0=No visual loss Facial: 2=Partial (lower face paralysis) Motor Arm - Left: 0=No drift Motor Arm - Right: 0=No drift Motor Leg - Left: 0=No drift Motor Leg - Right: 0=No drift Limb Ataxia: 0=Absent Sensory: 1=Mild to moderate loss Best Language: 0=No aphasia Dysarthia: 0=Normal articulation Extinction & Inattention (Neglect): 0=Normal, no object Score: 3 Severity Of Stroke: 1-4 = Minor Stroke Medical Decision Making Medical Decision Making: Impression: facial numbness Plan: * CT head * EKG * Labs Patient does not qualify for thrombolitic criteria, out of the window for treatment. Spoke with Dr. Gtz and Dr. Merritt who both agree that patient does not qualify for thrombolitic treatment. Disposition - Disposition Disposition: HOSPITALIZED Disposition Time: 22:34 Condition: FAIR - Clinical Impression Clinical Impression: CVA (cerebral vascular accident) - Scribe Statement The provider has reviewed the documentation as recorded by the Scribe Barry Hawkins All medical record entries made by the Scribe were at my direction and personally dictated by me. I have reviewed the chart and agree that the record accurately reflects my personal performance of the history, physical exam, medical decision making, and the department course for this patient. I have also personally directed, reviewed, and agree with the discharge instructions and disposition.
[2017-06-30 19:42] LABS: BASO % 0.6 % (0.0-2.0); EOS # 0.2 K/uL (0.0-0.7); EOS % 3.6 % (0.0-4.0); HEMOGLOBIN 15.8 g/dL (12.0-18.0); LYMPH # 1.7 K/uL (1.0-4.3); LYMPH % 25.3 % (20.0-40.0); MEAN CELL VOLUME 96.1 fL (80.0-94.0); MEAN CORPUSCULAR HEMOGLOBIN 32.8 pg (27.0-31.0); MEAN CORPUSCULAR HGB CONC 34.2 g/dL (33.0-37.0); MEAN PLATELET VOLUME 8.1 fL (7.2-11.7); MONO # 0.5 K/uL (0.0-0.8); MONO % 7.8 % (0.0-10.0); NEUT # 4.1 K/uL (1.8-7.0); NEUT % 62.7 % (50.0-75.0); RBC 4.82 Mil/uL (4.40-5.90); RED CELL DISTRIBUTION WIDTH 12.6 % (11.5-14.5); WHITE BLOOD COUNT 6.5 K/uL (4.8-10.8)
--- NOTE | 2017-06-30 19:49 | CT ---
EXAM: CT Head Without Intravenous Contrast EXAM DATE/TIME: 06/30/2017 7:29 PM CLINICAL HISTORY: 56 years old, male; Signs and symptoms; Other: Right facial droop; Additional info: Code stroke alert bed 5 TECHNIQUE: Axial computed tomography images of the head/brain without intravenous contrast. All CT scans at this facility use one or more dose reduction techniques, viz.: automated exposure control; ma/kV adjustment per patient size (including targeted exams where dose is matched to indication; i.e. head); or iterative reconstruction technique. COMPARISON: There are no prior studies for comparison. FINDINGS: Brain: Ventricles are normal in size. There is no midline shift. There is mild prominence of sulci and gyri. There are no intra-axial or extra-axial mass lesions or areas of hemorrhage. There are no abnormal fluid collections. Arauz-white differentiation is maintained. Ventricles: See above. Bones: Cranial vault is intact. Soft tissues: unremarkable Sinuses: There is no acute sinusitis. Ears and mastoids: Middle ears and mastoids are unremarkable Orbits: Orbital contents are unremarkable. IMPRESSION: No acute intracranial abnormality
[2017-06-30 19:51] LABS: INR 1.8
[2017-06-30 19:55] LABS: ALBUMIN 4.4 g/dL (3.5-5.0); ALT/SGPT 41 U/L (21-72); AST/SGOT 35 U/L (17-59); BLOOD UREA NITROGEN 13 mg/dL (9-20); CALCIUM 8.9 mg/dl (8.6-10.4); GFR AFRICAN-AMERICAN > 60; GFR NON-AFRICAN AMERICAN > 60; HDL CHOLESTEROL 40 mg/dL (30-70)
[2017-06-30 20:08] LABS: B-TYPE NATRIURETIC PEPTIDE 554 pg/mL (0-900); CK-MB 0.77 ng/mL (0.0-3.38); LDL CHOLESTEROL 57 mg/dL (0-129)
[2017-06-30] MEDS ORDERED: Sodium Chloride 0.9% 1,000 ML ONE (20:49)
[2017-06-30] MEDS: Sodium Chloride 0.9% 1,000 ML IV SCH (21:03)
[2017-06-30] MEDS ORDERED: Iodixanol 320 MG/ML 100 ML BOTTLE IV ONE (21:15)
[2017-06-30] MEDS: (Novolin R) Insulin Human Regular 100 units/ml vial SC SCH (21:40)
[2017-07-01] MEDS: Sodium Chloride 0.9% 1,000 ML IV SCH ×3 (05:18→17:33)
[2017-07-01] MEDS: (Novolin R) Insulin Human Regular 100 units/ml vial SC SCH ×4 (08:09→21:22)
--- NOTE | 2017-07-01 09:15 | RAD ---
HISTORY: Code Stroke COMPARISON: 05/16/2017. FINDINGS: LUNGS: The lungs are well inflated and clear. PLEURA: No significant pleural effusion identified, no pneumothorax apparent. CARDIOVASCULAR: Normal. OSSEOUS STRUCTURES: No significant abnormalities. VISUALIZED UPPER ABDOMEN: Normal. OTHER FINDINGS: None. IMPRESSION: No active pulmonary disease.
--- NOTE | 2017-07-01 09:20 | CP.PCM.CON ---
History of Present Illness - History of Present Illness History of Present Illness: Mr. Haile 56 year old male with PMHx of CAD with 2 stents, HTN, non insulin dependant DM presents to the ED for evaluation of right facial side numbness. Patient reports he woke up at 10:00 on 06/30/2017 with right sided face numbness patient reports he felt as if his face had novacaine and felt heavy. Patient reports he had difficulty keeping fluids in his mouth, closing his right eye. Patient denies speech impairment, headache, weakness in one side of his body, numbness, headache, trauma, injury, fall. Patient presented to the ED 10 hours after onset of symptoms. CT scan of the head 06/30/2017 showed no acute intracranial abnormality. At present, he is alert, oriented x 3. He denies any headache, lightheadedness, blurred vision, diplopia, nausea, or vomiting. he is able to follow all simple commands with no weakness on any extremities. He has right facial droop, right eye ptosis, minimal right tongue deviation. Review of Systems - Review of Systems All systems: reviewed and no additional remarkable complaints except Past Patient History - Past Medical History & Family History Past Medical History?: Yes - Past Social History Smoking Status: Former Smoker - CARDIAC Hx Hypertension: Yes - PULMONARY Hx Respiratory Disorders: No - NEUROLOGICAL Hx Neurological Disorder: No - HEENT Hx HEENT Problems: No - RENAL Hx Chronic Kidney Disease: No - ENDOCRINE/METABOLIC Hx Diabetes Mellitus Type 2: Yes - HEMATOLOGICAL/ONCOLOGICAL Hx Blood Disorders: No - INTEGUMENTARY Hx Dermatological Problems: No - MUSCULOSKELETAL/RHEUMATOLOGICAL Hx Musculoskeletal Disorders: No Hx Falls: No - GASTROINTESTINAL Hx Gastrointestinal Disorders: No - GENITOURINARY/GYNECOLOGICAL Hx Genitourinary Disorders: No - PSYCHIATRIC Hx Substance Use: No - SURGICAL HISTORY Hx Surgeries: Yes Other/Comment: Janneth 1986 - ANESTHESIA Hx Anesthesia: Yes Hx Anesthesia Reactions: No Meds Allergies/Adverse Reactions: Allergies Allergy/AdvReac Type Severity Reaction Status Date / Time No Known Allergies Allergy Verified 06/30/17 19:24 - Medications Medications: Current Medications Acyclovir (Zovirax) 0 mg PO Q8 [facility]UAN; Protocol PRN Reason: Taper Stop: 07/09/17 09:14 Aspirin (Aspirin Chewable) 81 mg PO DAILY [facility] Atenolol (Tenormin) 25 mg PO DAILY [facility] Famotidine (Pepcid) 20 mg PO DAILY [facility] Glipizide (Glucotrol) 10 mg PO DAILY [facility] Sodium Chloride (Sodium Chloride 0.9%) 1,000 mls @ 100 mls/hr IV .Q10H [facility] Last Admin: 07/01/17 05:18 Dose: Not Given Insulin Human Regular (Novolin R) 0 unit SC ACHS [facility] PRN Reason: Protocol Last Admin: 07/01/17 08:09 Dose: Not Given Losartan Potassium (Cozaar) 25 mg PO DAILY [facility] Prednisone (Prednisone Tab) 60 mg PO DAILY [facility] Repaglinide (Prandin) 2 mg PO TID [facility] Rivaroxaban (Xarelto) 10 mg PO DAILY [facility] Rosuvastatin Calcium (Crestor) 20 mg PO HS [facility] Last Admin: 06/30/17 23:20 Dose: 20 mg Physical Exam - Constitutional Appears: No Acute Distress - Head Exam Head Exam: NORMAL INSPECTION - Eye Exam Eye Exam: PERRL Additional comments: right eye ptosis - Expanded Eye Exam Expanded Pupils: Reactive: Bilateral - Neck Exam Neck exam: Positive for: Normal Inspection - Respiratory Exam Respiratory Exam: Clear to Auscultation Bilateral, NORMAL BREATHING PATTERN - Cardiovascular Exam Cardiovascular Exam: +S1, +S2 - Neurological Exam Neurological exam: Alert, CN II-XII Intact, Normal Gait, Oriented x3 - Expanded Neurological Exam Expanded Patient oriented to: person, place, time Cranial nerves: EOM's Intact: Normal, Facial [place] w/Forehead Movement: Abnormal Right, Facial Sensation: Abnormal Right, Gag Reflex: Normal, Nystagmus : Normal, Tongue Deviation: Abnormal Right Ataxia: No Cerebellar Function: Finger to Nose: Normal, Heel to Julio: Normal Upper motor neuron: Pronator Drift: Normal, Sensory Extinction: Normal Sensory exam: Lower Extremity 2 Point Discrimination: Normal, Lower Extremity Light Touch: Normal, Lower Extremity Pin Prick: Normal, Lower Extremity Temperature: Normal, Upper Extremity 2 Point Discrimination: Normal, Upper Extremity Light Touch: Normal, Upper Extremity Pin Prick: Normal, Upper Extremity Temperature: Normal Neuro motor strength exam: Left Upper Extremity: 5, Right Upper Extremity: 5, Left Lower Extremity: 5, Right Lower Extremity: 5 Results - Vital Signs Recent Vital Signs: Last Vital Signs Temp 98.1 F 07/01/17 07:57 Pulse 69 07/01/17 07:57 Resp 20 07/01/17 07:57 BP 105/68 07/01/17 07:57 Pulse Ox 95 07/01/17 07:57 - Labs Result Diagrams: 06/30/17 19:31 06/30/17 19:31 Labs: Laboratory Results - last 24 hr 06/30/17 06/30/17 06/30/17 19:31 19:31 19:31 WBC 6.5 RBC 4.82 Hgb 15.8 Hct 46.3 MCV 96.1 H MCH 32.8 H MCHC 34.2 RDW 12.6 Plt Count 212 MPV 8.1 Neut % (Auto) 62.7 Lymph % (Auto) 25.3 [place] % (Auto) 7.8 Eos % (Auto) 3.6 Baso % (Auto) 0.6 Neut # (Auto) 4.1 Lymph # (Auto) 1.7 [place] # (Auto) 0.5 Eos # (Auto) 0.2 Baso # (Auto) 0.0 PT 21.0 H INR 1.8 APTT 45 H Sodium 143 Potassium 3.7 Chloride 102 Carbon Dioxide 27 Anion Gap 17 BUN 13 Creatinine 1.0 Est GFR ( Amer) > 60 Est GFR (Non-Af Amer) > 60 POC Glucose (mg/dL) Random Glucose 140 H Hemoglobin A1c Calcium 8.9 Total Bilirubin 0.7 AST 35 ALT 41 Alkaline Phosphatase 58 Total Creatine Kinase 103 CK-MB (Mass) 0.77 Troponin I 0.0170 NT-Pro-B Natriuret Pep 554 Total Protein 8.6 H Albumin 4.4 Globulin 4.3 H Albumin/Globulin Ratio 1.0 Triglycerides 86 Cholesterol 108 LDL Cholesterol Direct 57 HDL Cholesterol 40 Blood Type Antibody Screen 06/30/17 06/30/17 06/30/17 19:31 19:31 21:38 WBC RBC Hgb Hct MCV MCH MCHC RDW Plt Count MPV Neut % (Auto) Lymph % (Auto) [place] % (Auto) Eos % (Auto) Baso % (Auto) Neut # (Auto) Lymph # (Auto) [place] # (Auto) Eos # (Auto) Baso # (Auto) PT INR APTT Sodium Potassium Chloride Carbon Dioxide Anion Gap BUN Creatinine Est GFR ( Amer) Est GFR (Non-Af Amer) POC Glucose (mg/dL) 125 H Random Glucose Hemoglobin A1c 5.9 Calcium Total Bilirubin AST ALT Alkaline Phosphatase Total Creatine Kinase CK-MB (Mass) Troponin I NT-Pro-B Natriuret Pep Total Protein Albumin Globulin Albumin/Globulin Ratio Triglycerides Cholesterol LDL Cholesterol Direct HDL Cholesterol Blood Type A POSITIVE Antibody Screen Negative 07/01/17 06:06 WBC RBC Hgb Hct MCV MCH MCHC RDW Plt Count MPV Neut % (Auto) Lymph % (Auto) [place] % (Auto) Eos % (Auto) Baso % (Auto) Neut # (Auto) Lymph # (Auto) [place] # (Auto) Eos # (Auto) Baso # (Auto) PT INR APTT Sodium Potassium Chloride Carbon Dioxide Anion Gap BUN Creatinine Est GFR ( Amer) Est GFR (Non-Af Amer) POC Glucose (mg/dL) 82 Random Glucose Hemoglobin A1c Calcium Total Bilirubin AST ALT Alkaline Phosphatase Total Creatine Kinase CK-MB (Mass) Troponin I NT-Pro-B Natriuret Pep Total Protein Albumin Globulin Albumin/Globulin Ratio Triglycerides Cholesterol LDL Cholesterol Direct HDL Cholesterol Blood Type Antibody Screen Assessment & Plan (1) Hodges's palsy Assessment and Plan: This is a 56y/o male who has right facial droop, right eye ptosis, minimal right tongue deviation with no extremity weakness. CTA result pending Case discussed with Dr. Gtz, recommend the following 1. Telemetry 2. echocardiogram 3. MRI of the brain without contrast 4. Acyclovir 800 mg PO Q 8 hours 5. Prednisone 60 mg PO daily 6. Eyepatch on the right eye at nighttime. 7. PT, OT, Spech eval and treat Thank you. Status: Acute
--- NOTE | 2017-07-01 10:26 | CT ---
PROCEDURE: CT angiogram of the neck and brain dated 06/30/2017 HISTORY: Facial droop. COMPARISON: Comparison made with concurrent CT scan brain TECHNIQUE: Contiguous helical/transaxial images of the neck were obtained from the level of the skull-base to the superior mediastinum in the arteriographic phase of enhancement. Coronal and sagittal reformats or also generated. IV contrast dose: 100 cc Visipaque 320 Radiation Dose - DLP: 575.69 mGy-cm This CT exam was performed using one or more of the following dose reduction techniques: Automated exposure control, adjustment of the mA and/or kV according to patient size, and/or use of iterative reconstruction technique. . FINDINGS: The aortic arch and origins of the great vessels are widely patent. No significant atherosclerotic plaque changes are identified along the origins of the great vessels however some minimal atherosclerotic plaque seen along the inferior margin of the transverse portion of the aortic arch. The common carotid arteries, carotid bifurcations and internal carotid arteries including the PE trace, cavernous and supraclinoid segments widely patent. Some minimal plaque seen along the right and to a lesser degree left cavernous carotid segments. There is asymmetry of the vertebral arteries left-sided which larger in caliber/more dominant than the right side. Basilar artery patent. The visualized major branches of the [place] are patent as well. . The distal anterior middle and post cerebral arteries are relatively symmetric. . No evidence of large aneurysm nor vascular malformation Polypoid like mucosal thickening both maxillary antra left greater than right. 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 IMPRESSION: There is no evidence of occlusion nor significant stenosis involving the of anterior posterior circulation. Some minor calcified plaque changes seen along the carotid siphons. No evidence of large aneurysm nor vascular malformation
--- NOTE | 2017-07-01 15:22 | CP.PCM.PN ---
Subjective - Date & Time of Evaluation Date of Evaluation: 07/01/17 Time of Evaluation: 15:22 Objective - Vital Signs/Intake and Output Vital Signs (last 24 hours): Temp Pulse Resp BP Pulse Ox 98.1 F 50 L 20 105/68 95 07/01/17 07:57 07/01/17 13:54 07/01/17 07:57 07/01/17 07:57 07/01/17 07:57 Intake and Output: 07/01/17 07/01/17 11:59 23:59 Intake Total 400 Output Total 375 Balance -375 400 - Medications Medications: Current Medications Acyclovir (Zovirax) 800 mg PO Q8 [facility] PRN Reason: Protocol Last Admin: 07/01/17 14:04 Dose: Not Given Aspirin (Aspirin Chewable) 81 mg PO DAILY [facility] Last Admin: 07/01/17 09:52 Dose: 81 mg Atenolol (Tenormin) 25 mg PO DAILY [facility] Last Admin: 07/01/17 09:54 Dose: 25 mg Famotidine (Pepcid) 20 mg PO DAILY [facility] Last Admin: 07/01/17 09:52 Dose: 20 mg Glipizide (Glucotrol) 10 mg PO DAILY [facility] Last Admin: 07/01/17 09:52 Dose: 10 mg Sodium Chloride (Sodium Chloride 0.9%) 1,000 mls @ 100 mls/hr IV .Q10H [facility] Last Admin: 07/01/17 14:40 Dose: 100 mls/hr Insulin Human Regular (Novolin R) 0 unit SC ACHS [facility] PRN Reason: Protocol Last Admin: 07/01/17 12:00 Dose: Not Given Losartan Potassium (Cozaar) 25 mg PO DAILY [facility] Last Admin: 07/01/17 09:53 Dose: 25 mg Prednisone (Prednisone Tab) 60 mg PO DAILY [facility] Last Admin: 07/01/17 11:11 Dose: 60 mg Repaglinide (Prandin) 2 mg PO TID [facility] Last Admin: 07/01/17 13:34 Dose: 2 mg Rivaroxaban (Xarelto) 10 mg PO DAILY [facility] Last Admin: 07/01/17 09:52 Dose: 10 mg Rosuvastatin Calcium (Crestor) 20 mg PO HS [facility] Last Admin: 06/30/17 23:20 Dose: 20 mg - Labs Labs: 06/30/17 19:31 06/30/17 19:31 PT 21.0 SECONDS (9.7-12.2) H 06/30/17 19:31 INR 1.8 06/30/17 19:31 APTT 45 SECONDS (21-34) H 06/30/17 19:31
--- NOTE | 2017-07-01 15:31 | CP.PCM.HP ---
History of Present Illness - History of Present Illness History of Present Illness: COMPREHENSIVE HISTORY & PHYSICAL EXAM HPI PT WOKE UP WITH SUDDEN ONSET OF R. SIDED FACIAL SALIVA DROOP WITH NO WEAKNESS ALSO HAS DROOPING R EYE LID . PT WAS EVALUATED IN ER WITH NEG CT HEAD PAST HIST. CAD/STENT/NONSTEMI ON3 ANTICOAGULANTS , BRI[place]ANTA RECENTLY D/RASHAUN T2DM HTN PAROXYSMAL A FIB PERSONAL HIST: Smoking. N Alcohol. N Allergy N Travel_- . FAMILY HIST : ROS : Constitutional: Negative for weight change, chills, night sweats, fatigue and usage of assist device. Eyes: Negative for redness, swelling, itching, discharge, vision changes, blurry vision, double vision, glaucoma, cataracts, Ears: Negative for hearing loss, ringing, , tinnitus, vertigo Nose: Negative for rhinorrhea, stuffiness, sniffing, itching, postnasal drip, discoloration, nasal congestion and epistaxis. Throat: Negative for throat clearing, sore throat, hoarseness, difficulty swallowing and difficulty speaking. Respiratory: Negative for cough, , sputum production, chest tightness, wheezing, pleuritic chest pain ,daytime somnolence, chronic cough, hemoptysis, snoring at night, Cardiovascular: Negative for chest pain, palpitations, orthopnea, PND, Edema of legs, leg cramps, angina, claudication, , irregular heartbeat, Neurology: Negative for irritability, muscle weakness, numbness and tingling, seizures, tremors, migraines, slurred speech, syncope, memory loss, mood changes , recurrent headaches Gastrointestinal: Negative for difficulty swallowing, diarrhea, constipation, black stools, rectal bleeding, nausea, flatulence, reflux, poor appetite, changes in bowel habits, abdominal pain Genitourinary: Negative for frequent urination, hematuria, discharge, incontinence, urinary retention, frequent UTI, Psychiatric: Negative for depression, anxiety/panic, suicidal tendencies, Musculoskeletal: Negative for swollen joints, back pain, , neck pain, morning stiffness of joints, . Skin: Negative for rash, ulcers, itching, dry skin and pigmented lesions. P/E: Constitutional: Appears stated age and in no apparent distress. Head: Normocephalic. Ears: External ear canals patent without inflammation. Tympanic membranes intact with normal light reflex and landmark. Eyes: Pupils are central, bilaterally equal, symmetrical and reacts to light with normal movements and no icterus or pallor. Nose: External nares are patent. Mucosa is pink Mouth-Throat: Good general appearance and condition. No post-pharyngeal/oropharyngeal erythema and tonsillar hypertrophy. Good dental hygiene. Neck-Lymphatic: Neck is supple with normal ROM, no thyromegaly, lymph nodes or masses. JVD is normal with no carotid bruit. Lungs: Clear to percussion and auscultation with bilateral normal air entry. Cardiovascular: S1 and S2 are normal with no murmurs, gallops and rub. GI Exam: No hepatomegaly. Abdomen is soft and non-tender. No Organomegaly , masses or hernias are evident and bowel sounds are normal and active. Neurology: Higher function 7TH NERVE SUPRANUCLEAR PALSY . R SIDE DROOP , R PTOSIS BUT ABLE TO FURROW R. FOREHEAD with no gross motor or sensory deficit. Superficial and deep reflexes are normal with downwards planters. No cerebellar deficit with normal gait. Musculoskeletal: No tender spots with normal curvature of the spine with no swelling or restricted ROM of the small and large joints. Extremities: Homans sign absent. Intact pulses with no pitting edema, calf tenderness or skin color changes. Skin: No rash, eruptions or abnormal skin pigmentation LAB/RADIOLOGY: ASSESMENT : SUPRANUCLEAR FACIAL PALY OF CENTRAL ORIGIN T2DM CAD/STENT PLAN: ANTICOAGULATIO N MRI BRAIN Present on Admission - Present on Admission Any Indicators Present on Admission: No Past Patient History - Past Medical History & Family History Past Medical History?: Yes - Past Social History Smoking Status: Former Smoker - CARDIAC Hx Hypertension: Yes - PULMONARY Hx Respiratory Disorders: No - NEUROLOGICAL Hx Neurological Disorder: No - HEENT Hx HEENT Problems: No - RENAL Hx Chronic Kidney Disease: No - ENDOCRINE/METABOLIC Hx Diabetes Mellitus Type 2: Yes - HEMATOLOGICAL/ONCOLOGICAL Hx Blood Disorders: No - INTEGUMENTARY Hx Dermatological Problems: No - MUSCULOSKELETAL/RHEUMATOLOGICAL Hx Musculoskeletal Disorders: No Hx Falls: No - GASTROINTESTINAL Hx Gastrointestinal Disorders: No - GENITOURINARY/GYNECOLOGICAL Hx Genitourinary Disorders: No - PSYCHIATRIC Hx Substance Use: No - SURGICAL HISTORY Hx Surgeries: Yes Other/Comment: Janneth 1987 - ANESTHESIA Hx Anesthesia: Yes Hx Anesthesia Reactions: No Meds Allergies/Adverse Reactions: Allergies Allergy/AdvReac Type Severity Reaction Status Date / Time No Known Allergies Allergy Verified 06/30/17 19:24 Results - Vital Signs Recent Vital Signs: Last Vital Signs Temp 98.1 F 07/01/17 07:57 Pulse 50 L 07/01/17 13:54 Resp 20 07/01/17 07:57 BP 105/68 07/01/17 07:57 Pulse Ox 95 07/01/17 07:57 - Labs Result Diagrams: 06/30/17 19:31 06/30/17 19:31 Labs: Laboratory Results - last 24 hr 06/30/17 06/30/17 06/30/17 19:31 19:31 19:31 WBC 6.5 RBC 4.82 Hgb 15.8 Hct 46.3 MCV 96.1 H MCH 32.8 H MCHC 34.2 RDW 12.6 Plt Count 212 MPV 8.1 Neut % (Auto) 62.7 Lymph % (Auto) 25.3 [place] % (Auto) 7.8 Eos % (Auto) 3.6 Baso % (Auto) 0.6 Neut # (Auto) 4.1 Lymph # (Auto) 1.7 [place] # (Auto) 0.5 Eos # (Auto) 0.2 Baso # (Auto) 0.0 PT 21.0 H INR 1.8 APTT 45 H Sodium 143 Potassium 3.7 Chloride 102 Carbon Dioxide 27 Anion Gap 17 BUN 13 Creatinine 1.0 Est GFR ( Amer) > 60 Est GFR (Non-Af Amer) > 60 POC Glucose (mg/dL) Random Glucose 140 H Hemoglobin A1c Calcium 8.9 Total Bilirubin 0.7 AST 35 ALT 41 Alkaline Phosphatase 58 Total Creatine Kinase 103 CK-MB (Mass) 0.77 Troponin I 0.0170 NT-Pro-B Natriuret Pep 554 Total Protein 8.6 H Albumin 4.4 Globulin 4.3 H Albumin/Globulin Ratio 1.0 Triglycerides 86 Cholesterol 108 LDL Cholesterol Direct 57 HDL Cholesterol 40 Blood Type Antibody Screen 06/30/17 06/30/17 06/30/17 19:31 19:31 21:38 WBC RBC Hgb Hct MCV MCH MCHC RDW Plt Count MPV Neut % (Auto) Lymph % (Auto) [place] % (Auto) Eos % (Auto) Baso % (Auto) Neut # (Auto) Lymph # (Auto) [place] # (Auto) Eos # (Auto) Baso # (Auto) PT INR APTT Sodium Potassium Chloride Carbon Dioxide Anion Gap BUN Creatinine Est GFR ( Amer) Est GFR (Non-Af Amer) POC Glucose (mg/dL) 125 H Random Glucose Hemoglobin A1c 5.9 Calcium Total Bilirubin AST ALT Alkaline Phosphatase Total Creatine Kinase CK-MB (Mass) Troponin I NT-Pro-B Natriuret Pep Total Protein Albumin Globulin Albumin/Globulin Ratio Triglycerides Cholesterol LDL Cholesterol Direct HDL Cholesterol Blood Type A POSITIVE Antibody Screen Negative 07/01/17 07/01/17 06:06 11:43 WBC RBC Hgb Hct MCV MCH MCHC RDW Plt Count MPV Neut % (Auto) Lymph % (Auto) [place] % (Auto) Eos % (Auto) Baso % (Auto) Neut # (Auto) Lymph # (Auto) [place] # (Auto) Eos # (Auto) Baso # (Auto) PT INR APTT Sodium Potassium Chloride Carbon Dioxide Anion Gap BUN Creatinine Est GFR ( Amer) Est GFR (Non-Af Amer) POC Glucose (mg/dL) 82 107 Random Glucose Hemoglobin A1c Calcium Total Bilirubin AST ALT Alkaline Phosphatase Total Creatine Kinase CK-MB (Mass) Troponin I NT-Pro-B Natriuret Pep Total Protein Albumin Globulin Albumin/Globulin Ratio Triglycerides Cholesterol LDL Cholesterol Direct HDL Cholesterol Blood Type Antibody Screen
--- NOTE | 2017-07-01 23:37 | CARD ---
APPROVED REPORT EKG Measurement Heart [id number] <Conclusion> Normal sinus rhythm Normal ECG
[2017-07-02] MEDS: Sodium Chloride 0.9% 1,000 ML IV SCH (03:00)
[2017-07-02] MEDS: (Novolin R) Insulin Human Regular 100 units/ml vial SC SCH ×4 (06:41→21:22)
--- NOTE | 2017-07-02 08:03 | CP.PCM.PN ---
Subjective - Date & Time of Evaluation Date of Evaluation: 07/02/17 Time of Evaluation: 08:00 - Subjective Subjective: Mr. wong was seen and examined at the bedside. He is alert, oriented in all spheres. He denies any headache, dizziness, lightheadedness, blurred vision, diplopia. His speech is clear and follows all commands. He remains with right facial droop with right eye ptosis. Sensation is diminished in the right area of his face. He is able to move all extremities with equal strength. There was no untoward events overnight. Objective - Vital Signs/Intake and Output Vital Signs (last 24 hours): Temp Pulse Resp BP Pulse Ox 97.3 F L 59 L 20 136/79 94 L 07/01/17 23:10 07/02/17 01:00 07/01/17 23:10 07/01/17 23:10 07/01/17 23:10 Intake and Output: 07/02/17 07/02/17 06:59 18:59 Intake Total 1100 Output Total 350 Balance 750 - Medications Medications: Current Medications Acyclovir (Zovirax) 800 mg PO Q8 [facility] PRN Reason: Protocol Last Admin: 07/02/17 06:38 Dose: 800 mg Aspirin (Aspirin Chewable) 81 mg PO DAILY [facility] Last Admin: 07/01/17 09:52 Dose: 81 mg Atenolol (Tenormin) 25 mg PO DAILY [facility] Last Admin: 07/01/17 09:54 Dose: 25 mg Famotidine (Pepcid) 20 mg PO DAILY [facility] Last Admin: 07/01/17 09:52 Dose: 20 mg Glipizide (Glucotrol) 10 mg PO ACB [facility] Last Admin: 07/02/17 06:44 Dose: 10 mg Sodium Chloride (Sodium Chloride 0.9%) 1,000 mls @ 100 mls/hr IV .Q10H [facility] Last Admin: 07/02/17 03:00 Dose: 100 mls/hr Insulin Human Regular (Novolin R) 0 unit SC ACHS [facility] PRN Reason: Protocol Last Admin: 07/02/17 06:41 Dose: Not Given Losartan Potassium (Cozaar) 25 mg PO DAILY [facility] Last Admin: 07/01/17 09:53 Dose: 25 mg Prednisone (Prednisone Tab) 60 mg PO DAILY [facility] Last Admin: 07/01/17 11:11 Dose: 60 mg Repaglinide (Prandin) 2 mg PO TIDAC [facility] Last Admin: 07/02/17 06:40 Dose: 2 mg Rivaroxaban (Xarelto) 10 mg PO DAILY [facility] Last Admin: 07/01/17 09:52 Dose: 10 mg Rosuvastatin Calcium (Crestor) 20 mg PO HS [facility] Last Admin: 07/01/17 21:37 Dose: 20 mg - Labs Labs: 06/30/17 19:31 06/30/17 19:31 PT 21.0 SECONDS (9.7-12.2) H 06/30/17 19:31 INR 1.8 06/30/17 19:31 APTT 45 SECONDS (21-34) H 06/30/17 19:31 - Constitutional Appears: No Acute Distress - Head Exam Head Exam: NORMAL INSPECTION - Neurological Exam Neurological Exam: Alert, Awake Neuro motor strength exam: Left Upper Extremity: 5, Right Upper Extremity: 5, Left Lower Extremity: 5, Right Lower Extremity: 5 Additional comments: His speech is clear and follows all commands. He remains with right facial droop with right eye ptosis. Sensation is diminished in the right area of his face. He is able to move all extremities with equal strength. Assessment and Plan (1) Hodges's palsy Assessment & Plan: Case discussed with Dr. Zimmerman, continue all current medical regimen. Patient just had coronary stent a month ago, so MRI of the brain is not possible at this time. Recommend repeat CT scan of the head to follow up and evaluate any new acute findings. Status: Acute
--- NOTE | 2017-07-02 09:06 | CT ---
PROCEDURE: CT HEAD WITHOUT CONTRAST. HISTORY: right facial droop COMPARISON: None available. TECHNIQUE: Axial computed tomography images were obtained through the head/brain without intravenous contrast. Radiation dose: Total exam DLP = 882.25 mGy-cm. This CT exam was performed using one or more of the following dose reduction techniques: Automated exposure control, adjustment of the mA and/or kV according to patient size, and/or use of iterative reconstruction technique. FINDINGS: HEMORRHAGE: No intracranial hemorrhage. BRAIN: No mass effect or edema. Mild diffuse atrophy. Minimal periventricular white matter lucency consistent with chronic white matter ischemic change. VENTRICLES: Unremarkable. No hydrocephalus. CALVARIUM: Unremarkable. PARANASAL SINUSES: Unremarkable as visualized. No significant inflammatory changes. MASTOID AIR CELLS: Unremarkable as visualized. No inflammatory changes. OTHER FINDINGS: None. IMPRESSION: No intracranial mass, hemorrhage or evidence of acute infarct. Minimal involutional change.
--- NOTE | 2017-07-02 11:53 | CP.PCM.PN ---
Subjective - Date & Time of Evaluation Date of Evaluation: 07/02/17 Time of Evaluation: 11:50 - Subjective Subjective: R. LOWER FACE WEAKNESS WITH OCCASIONAL DROOLING NO SPEECH , MOTOR OR SENSORY DEFICIT HAD EPISODE OF PAROSYXMAL A. FIB , BACK TO S. JP CTA HEAD NEG REPEAT CT HEAD NEG MRI NOT FEASIBLE DUE TO RECENT COR. STENT CONT PRESENT MANAGEMENT WITH PT Objective - Vital Signs/Intake and Output Vital Signs (last 24 hours): Temp Pulse Resp BP Pulse Ox 97.4 F L 54 L 18 149/90 95 07/02/17 07:30 07/02/17 08:03 07/02/17 07:30 07/02/17 07:30 07/02/17 07:30 Intake and Output: 07/01/17 07/02/17 23:59 11:59 Intake Total 1500 Output Total 700 150 Balance 800 -150 - Medications Medications: Current Medications Acyclovir (Zovirax) 800 mg PO Q8 [facility] PRN Reason: Protocol Last Admin: 07/02/17 06:38 Dose: 800 mg Aspirin (Aspirin Chewable) 81 mg PO DAILY [facility] Last Admin: 07/02/17 09:21 Dose: 81 mg Atenolol (Tenormin) 25 mg PO DAILY [facility] Last Admin: 07/02/17 09:21 Dose: 25 mg Famotidine (Pepcid) 20 mg PO DAILY [facility] Last Admin: 07/02/17 09:21 Dose: 20 mg Glipizide (Glucotrol) 10 mg PO ACB [facility] Last Admin: 07/02/17 06:44 Dose: 10 mg Sodium Chloride (Sodium Chloride 0.9%) 1,000 mls @ 100 mls/hr IV .Q10H [facility] Last Admin: 07/02/17 03:00 Dose: 100 mls/hr Insulin Human Regular (Novolin R) 0 unit SC ACHS [facility] PRN Reason: Protocol Last Admin: 07/02/17 11:38 Dose: Not Given Losartan Potassium (Cozaar) 25 mg PO DAILY [facility] Last Admin: 07/02/17 09:21 Dose: 25 mg Prednisone (Prednisone Tab) 60 mg PO DAILY [facility] Last Admin: 07/02/17 09:21 Dose: 60 mg Repaglinide (Prandin) 2 mg PO TIDAC [facility] Last Admin: 07/02/17 06:40 Dose: 2 mg Rivaroxaban (Xarelto) 10 mg PO DAILY [facility] Last Admin: 07/02/17 09:22 Dose: 10 mg Rosuvastatin Calcium (Crestor) 20 mg PO HS [facility] Last Admin: 07/01/17 21:37 Dose: 20 mg - Labs Labs: 06/30/17 19:31 06/30/17 19:31 PT 21.0 SECONDS (9.7-12.2) H 06/30/17 19:31 INR 1.8 06/30/17 19:31 APTT 45 SECONDS (21-34) H 06/30/17 19:31
[2017-07-03] MEDS: (Novolin R) Insulin Human Regular 100 units/ml vial SC SCH ×2 (07:30→17:26)
--- NOTE | 2017-07-03 08:59 | CP.PCM.PN ---
Subjective - Date & Time of Evaluation Date of Evaluation: 07/03/17 Time of Evaluation: 08:56 - Subjective Subjective: Mr. Haile was seen and examined at the bedside. He remains alert, oriented in all spheres. He remains with right eye ptosis, with improving frown with minimal movement of the right side of his forehead. He is able to close his eyes however the left eye can be easily open in comparison to his right eye. His right facial droop remains the same with decrease sensation of the right facial area. He has a noticeable wart located in his right cheek. He denies any other bodily rash except for a rash/ skin irritation in his sacral area, by the rectal area. He is able to follow simple commands. He remains with symmetrical extremity strength. There was no untoward events overnight. Objective - Vital Signs/Intake and Output Vital Signs (last 24 hours): Temp Pulse Resp BP Pulse Ox 98.3 F 54 L 18 111/66 98 07/03/17 08:39 07/03/17 08:39 07/03/17 08:39 07/03/17 08:39 07/03/17 08:39 Intake and Output: 07/03/17 07/03/17 06:59 18:59 Intake Total 320 Balance 320 - Medications Medications: Current Medications Acyclovir (Zovirax) 800 mg PO Q8 [facility] PRN Reason: Protocol Last Admin: 07/03/17 05:29 Dose: 800 mg Aspirin (Aspirin Chewable) 81 mg PO DAILY [facility] Last Admin: 07/02/17 09:21 Dose: 81 mg Atenolol (Tenormin) 25 mg PO DAILY [facility] Last Admin: 07/02/17 09:21 Dose: 25 mg Famotidine (Pepcid) 20 mg PO DAILY [facility] Last Admin: 07/02/17 09:21 Dose: 20 mg Glipizide (Glucotrol) 10 mg PO ACB [facility] Last Admin: 07/02/17 06:44 Dose: 10 mg Insulin Human Regular (Novolin R) 0 unit SC ACHS [facility] PRN Reason: Protocol Last Admin: 07/02/17 21:22 Dose: Not Given Losartan Potassium (Cozaar) 25 mg PO DAILY [facility] Last Admin: 07/02/17 09:21 Dose: 25 mg Prednisone (Prednisone Tab) 60 mg PO DAILY [facility] Last Admin: 07/02/17 09:21 Dose: 60 mg Repaglinide (Prandin) 2 mg PO TIDAC [facility] Last Admin: 07/02/17 16:38 Dose: 2 mg Rivaroxaban (Xarelto) 20 mg PO DAILY [facility] Rosuvastatin Calcium (Crestor) 20 mg PO HS [facility] Last Admin: 07/02/17 21:18 Dose: 20 mg - Labs Labs: 06/30/17 19:31 06/30/17 19:31 PT 21.0 SECONDS (9.7-12.2) H 06/30/17 19:31 INR 1.8 06/30/17 19:31 APTT 45 SECONDS (21-34) H 06/30/17 19:31 - Constitutional Appears: No Acute Distress - Head Exam Head Exam: NORMAL INSPECTION - Eye Exam Pupil Exam: PERRL - Rectal Exam Additional comments: rash/ skin irritation ( fungal infection) in the sacral/ rectal area. - Neurological Exam Neurological Exam: Alert, Awake, Oriented x3 Neuro motor strength exam: Left Upper Extremity: 5, Right Upper Extremity: 5, Left Lower Extremity: 5, Right Lower Extremity: 5 Additional comments: Neurological unchanged from previous examination. Assessment and Plan (1) Hodges's palsy Assessment & Plan: Case discussed with Dr. Zimmerman, continue all current medical regimen, Acyclovir 800 mg Po Q 8, prednisone 60 mg PO daily for 5 days then decrease to 30 mg PO daily for 5 days, then decrease 10 mg PO daily for 5 days then discontinue. With Ct scan dis not show any acute findings, recommend HSV type 1& 2, HIV, lyme titer ( western blot), and PK for possible sjoren syndrome. Pending result for HSV, lyme and PK. Since patient has a-fib, recommend echocardiogram to r/o any coronary thrombus. With the sacral/ rectal fungal infection, recommend nystatin powder to be applied for 14 days to start today. Status: Acute
--- NOTE | 2017-07-03 12:15 | CP.PCM.CON ---
Past Patient History - Past Medical History & Family History Past Medical History?: Yes - Past Social History Smoking Status: Former Smoker - CARDIAC Hx Cardiac Disorders: Yes (CAD 2 STENTS) Hx Hypertension: Yes - PULMONARY Hx Respiratory Disorders: No - NEUROLOGICAL Hx Neurological Disorder: No - HEENT Hx HEENT Problems: No - RENAL Hx Chronic Kidney Disease: No - ENDOCRINE/METABOLIC Hx Diabetes Mellitus Type 2: Yes - HEMATOLOGICAL/ONCOLOGICAL Hx Blood Disorders: No - INTEGUMENTARY Hx Dermatological Problems: No - MUSCULOSKELETAL/RHEUMATOLOGICAL Hx Musculoskeletal Disorders: No Hx Falls: No - GASTROINTESTINAL Hx Gastrointestinal Disorders: No - GENITOURINARY/GYNECOLOGICAL Hx Genitourinary Disorders: No - PSYCHIATRIC Hx Substance Use: No - SURGICAL HISTORY Hx Surgeries: Yes Other/Comment: Janneth Simpson - ANESTHESIA Hx Anesthesia: Yes Hx Anesthesia Reactions: No Meds Allergies/Adverse Reactions: Allergies Allergy/AdvReac Type Severity Reaction Status Date / Time No Known Allergies Allergy Verified 06/30/17 19:24 - Medications Medications: Current Medications Acyclovir (Zovirax) 800 mg PO Q8 [facility] PRN Reason: Protocol Last Admin: 07/03/17 05:29 Dose: 800 mg Aspirin (Aspirin Chewable) 81 mg PO DAILY [facility] Last Admin: 07/03/17 09:13 Dose: 81 mg Atenolol (Tenormin) 25 mg PO DAILY [facility] Last Admin: 07/03/17 09:13 Dose: 25 mg Famotidine (Pepcid) 20 mg PO DAILY [facility] Last Admin: 07/03/17 09:13 Dose: 20 mg Glipizide (Glucotrol) 10 mg PO ACB [facility] Last Admin: 07/03/17 09:13 Dose: 10 mg Insulin Human Regular (Novolin R) 0 unit SC ACHS [facility] PRN Reason: Protocol Last Admin: 07/03/17 07:30 Dose: Not Given Losartan Potassium (Cozaar) 25 mg PO DAILY [facility] Last Admin: 07/03/17 09:13 Dose: 25 mg Nystatin (Nystop Topical Powder) 1 applic TOP BID [facility] Stop: 07/17/17 10:00 Prednisone (Prednisone Tab) 60 mg PO DAILY [facility] Last Admin: 07/03/17 09:13 Dose: 60 mg Repaglinide (Prandin) 2 mg PO TIDAC [facility] Last Admin: 07/03/17 09:14 Dose: 2 mg Rivaroxaban (Xarelto) 20 mg PO DAILY [facility] Rosuvastatin Calcium (Crestor) 20 mg PO HS [facility] Last Admin: 07/02/17 21:18 Dose: 20 mg Results - Vital Signs Recent Vital Signs: Last Vital Signs Temp 98.3 F 07/03/17 08:39 Pulse 54 L 07/03/17 08:39 Resp 18 07/03/17 08:39 BP 111/66 07/03/17 08:39 Pulse Ox 98 07/03/17 08:39 - Labs Result Diagrams: 06/30/17 19:31 06/30/17 19:31 Labs: Laboratory Results - last 24 hr 07/02/17 07/02/17 07/02/17 16:09 17:21 21:05 POC Glucose (mg/dL) 210 H 176 H HIV 1&2 Antibody Screen Negative 07/03/17 07/03/17 06:10 11:31 POC Glucose (mg/dL) 92 109 HIV 1&2 Antibody Screen
--- NOTE | 2017-07-03 12:20 | CP.PCM.CON ---
History of Present Illness - History of Present Illness History of Present Illness: 56 Male with hx of 2 JORGE coronary stents 05/2017 admitted for possible CVA These stents are MRI compatible Patient can have MRI as ordered. There is no contraindication Past Patient History - Past Medical History & Family History Past Medical History?: Yes - Past Social History Smoking Status: Former Smoker - CARDIAC Hx Cardiac Disorders: Yes (CAD 2 STENTS) Hx Hypertension: Yes - PULMONARY Hx Respiratory Disorders: No - NEUROLOGICAL Hx Neurological Disorder: No - HEENT Hx HEENT Problems: No - RENAL Hx Chronic Kidney Disease: No - ENDOCRINE/METABOLIC Hx Diabetes Mellitus Type 2: Yes - HEMATOLOGICAL/ONCOLOGICAL Hx Blood Disorders: No - INTEGUMENTARY Hx Dermatological Problems: No - MUSCULOSKELETAL/RHEUMATOLOGICAL Hx Musculoskeletal Disorders: No Hx Falls: No - GASTROINTESTINAL Hx Gastrointestinal Disorders: No - GENITOURINARY/GYNECOLOGICAL Hx Genitourinary Disorders: No - PSYCHIATRIC Hx Substance Use: No - SURGICAL HISTORY Hx Surgeries: Yes Other/Comment: [facility] - ANESTHESIA Hx Anesthesia: Yes Hx Anesthesia Reactions: No Meds Allergies/Adverse Reactions: Allergies Allergy/AdvReac Type Severity Reaction Status Date / Time No Known Allergies Allergy Verified 06/30/17 19:24 - Medications Medications: Current Medications Acyclovir (Zovirax) 800 mg PO Q8 [facility] PRN Reason: Protocol Last Admin: 07/03/17 05:29 Dose: 800 mg Aspirin (Aspirin Chewable) 81 mg PO DAILY [facility] Last Admin: 07/03/17 09:13 Dose: 81 mg Atenolol (Tenormin) 25 mg PO DAILY [facility] Last Admin: 07/03/17 09:13 Dose: 25 mg Famotidine (Pepcid) 20 mg PO DAILY [facility] Last Admin: 07/03/17 09:13 Dose: 20 mg Glipizide (Glucotrol) 10 mg PO ACB [facility] Last Admin: 07/03/17 09:13 Dose: 10 mg Insulin Human Regular (Novolin R) 0 unit SC ACHS [facility] PRN Reason: Protocol Last Admin: 07/03/17 07:30 Dose: Not Given Losartan Potassium (Cozaar) 25 mg PO DAILY [facility] Last Admin: 07/03/17 09:13 Dose: 25 mg Nystatin (Nystop Topical Powder) 1 applic TOP BID [facility] Stop: 07/17/17 10:00 Prednisone (Prednisone Tab) 60 mg PO DAILY [facility] Last Admin: 07/03/17 09:13 Dose: 60 mg Repaglinide (Prandin) 2 mg PO TIDAC [facility] Last Admin: 07/03/17 09:14 Dose: 2 mg Rivaroxaban (Xarelto) 20 mg PO DAILY [facility] Rosuvastatin Calcium (Crestor) 20 mg PO HS [facility] Last Admin: 07/02/17 21:18 Dose: 20 mg Results - Vital Signs Recent Vital Signs: Last Vital Signs Temp 98.3 F 07/03/17 08:39 Pulse 54 L 07/03/17 08:39 Resp 18 07/03/17 08:39 BP 111/66 07/03/17 08:39 Pulse Ox 98 07/03/17 08:39 - Labs Result Diagrams: 06/30/17 19:31 06/30/17 19:31 Labs: Laboratory Results - last 24 hr 07/02/17 07/02/17 07/02/17 16:09 17:21 21:05 POC Glucose (mg/dL) 210 H 176 H HIV 1&2 Antibody Screen Negative 07/03/17 07/03/17 06:10 11:31 POC Glucose (mg/dL) 92 109 HIV 1&2 Antibody Screen
--- NOTE | 2017-07-03 13:45 | CP.PCM.PN ---
Subjective - Date & Time of Evaluation Date of Evaluation: 07/03/17 Time of Evaluation: 13:43 - Subjective Subjective: NO CHANGE IN SUPRANUCLEAR FACIAL PALSY WITH R SIDE DROOP AND PRESERVED FOREHEAD FROWNING MRI TODAY CLEARED BY IC WILL TREAT IT CVA SEC TO A. FIB XARELTO INCREASED TO 20 MG Objective - Vital Signs/Intake and Output Vital Signs (last 24 hours): Temp Pulse Resp BP Pulse Ox 98.3 F 54 L 18 111/66 98 07/03/17 08:39 07/03/17 08:39 07/03/17 08:39 07/03/17 08:39 07/03/17 08:39 - Medications Medications: Current Medications Acyclovir (Zovirax) 800 mg PO Q8 [facility] PRN Reason: Protocol Last Admin: 07/03/17 05:29 Dose: 800 mg Aspirin (Aspirin Chewable) 81 mg PO DAILY [facility] Last Admin: 07/03/17 09:13 Dose: 81 mg Atenolol (Tenormin) 25 mg PO DAILY [facility] Last Admin: 07/03/17 09:13 Dose: 25 mg Famotidine (Pepcid) 20 mg PO DAILY [facility] Last Admin: 07/03/17 09:13 Dose: 20 mg Glipizide (Glucotrol) 10 mg PO ACB [facility] Last Admin: 07/03/17 09:13 Dose: 10 mg Insulin Human Regular (Novolin R) 0 unit SC ACHS [facility] PRN Reason: Protocol Last Admin: 07/03/17 07:30 Dose: Not Given Losartan Potassium (Cozaar) 25 mg PO DAILY [facility] Last Admin: 07/03/17 09:13 Dose: 25 mg Nystatin (Nystop Topical Powder) 1 applic TOP BID [facility] Stop: 07/17/17 10:00 Prednisone (Prednisone Tab) 60 mg PO DAILY [facility] Last Admin: 07/03/17 09:13 Dose: 60 mg Repaglinide (Prandin) 2 mg PO TIDAC [facility] Last Admin: 07/03/17 09:14 Dose: 2 mg Rivaroxaban (Xarelto) 20 mg PO DAILY [facility] Rosuvastatin Calcium (Crestor) 20 mg PO HS [facility] Last Admin: 07/02/17 21:18 Dose: 20 mg - Labs Labs: 06/30/17 19:31 06/30/17 19:31 PT 21.0 SECONDS (9.7-12.2) H 06/30/17 19:31 INR 1.8 06/30/17 19:31 APTT 45 SECONDS (21-34) H 06/30/17 19:31
--- NOTE | 2017-07-03 15:21 | MRI ---
PROCEDURE: MR Angiography of the neck without contrast HISTORY: r/o stroke vs dewitt palsy COMPARISON: None available. TECHNIQUE: 3D [id number] angiography of the neck was performed. Rotating maximum intensity projection images of the cervical carotid and vertebral arteries were generated. The origins of the common carotid arteries were not visualized, which is a limitation inherent to the non-contrast time of flight technique. FINDINGS: RIGHT CAROTID ARTERIES: Common Carotid Artery: Normal. Carotid Bifurcation: Normal. Internal Carotid Artery:Normal. External Carotid Artery (proximal branches): Normal. LEFT CAROTID ARTERIES: Common Carotid Artery: Normal. Carotid Bifurcation: Normal. Internal Carotid Artery:Normal. External Carotid Artery (proximal branches): Normal. VERTEBRAL ARTERIES: Right Vertebral Artery: Normal. Left Vertebral Artery: Normal. The left vertebral artery is dominant intracranially. OTHER FINDINGS: None. IMPRESSION: Normal MR Angiography of the neck.
--- NOTE | 2017-07-03 15:29 | MRI ---
PROCEDURE: Magnetic Resonance Angiography Brain HISTORY: r/o stroke COMPARISON: None available. TECHNIQUE: 3D time of flight MR angiography of the intracranial arteries was performed. Rotating maximum intensity projection images were generated. FINDINGS: INTERNAL CAROTID ARTERIES: Normal flow related signal. The skull base, petrous, cavernous and supraclinoid segments are bilaterally widely patient. ANTERIOR CEREBRAL ARTERIES: Normal flow related signal.. A1 and A2 segments are widely patent. Smaller distal branches unremarkable, as visualized. MIDDLE CEREBRAL ARTERIES: Normal flow related signal.. M1 and M2 segments are widely patent. Perisylvian branches grossly symmetric. POSTERIOR CIRCULATION: Basilar Artery: Normal in caliber and widely patent. Distal Vertebral Arteries: Normal in caliber and widely patent. Posterior Cerebral Arteries: Normal in caliber and widely patent. Posterior Inferior Cerebellar Arteries: Normal in caliber and widely patent. ANEURYSM/ VASCULAR MALFORMATIONS: None. OTHER FINDINGS: None. IMPRESSION: Normal MR angiography of the brain.
--- NOTE | 2017-07-03 15:41 | MRI ---
PROCEDURE: MRI BRAIN WITHOUT CONTRAST HISTORY: r/o cva vs dewitt palsey COMPARISON: Noncontrast head CT from 07/02/2017. TECHNIQUE: Multiplanar, multisequence MR images of the brain were obtained without intravenous contrast enhancement. FINDINGS: HEMORRHAGE: None DWI: No evidence of an acute or early subacute infarction. BRAIN PARENCHYMA: There is no mass, mass effect or abnormal extra-axial fluid collection. There is no territorial infarction. The midline sagittal structures are normal. VENTRICLES: There is mild global parenchymal volume loss and proportionate enlargement of the ventricles and cortical sulci, slightly advanced for the patient's age. CRANIUM: There is normal bone marrow signal pattern. ORBITS: Grossly unremarkable. PARANASAL SINUSES/MASTOIDS: There is fluid in the left maxillary sinus. The remaining included paranasal sinuses are predominantly clear. The mastoid air cells are clear. VASCULAR SYSTEM: There are normal signal voids in the larger intracranial arteries. . OTHER FINDINGS: None. IMPRESSION: 1. No acute intracranial abnormality. Specifically, no evidence for acute infarction. 2. Mild global parenchymal volume loss, slightly advanced for the patient's age. 3. Fluid in the left maxillary sinus may represent acute sinusitis in the appropriate clinical setting.
[2017-07-03 16:17] VITALS: BP 142/77; PULSE 57; RESP 20; TEMP 97.2; O2SAT 96
--- NOTE | 2017-07-03 18:49 | CARD ---
APPROVED REPORT EXAM: LIMITED Two-dimensional echocardiogram. Other Information Quality : [employer] : INDICATION CVA/TIA <Conclusion> limited study. no m mode is available. la,lv & ra rv size appears normal. overall normal lv systolic funciton with lvef of 55-60%. mitral,aortic,tv appears normal. doppler is not available. no pericardial effusion seen.
--- NOTE | 2017-07-04 14:13 | CP.PCM.DIS ---
Provider - Provider Date of Admission: 06/30/17 21:06 Attending physician: Karla Godoy MD Time Spent in preparation of Discharge (in minutes): 30 Hospital Course - Lab Results Lab Results: Most Recent Lab Values WBC 6.5 K/uL (4.8-10.8) 06/30/17 19: RBC 4.82 Mil/uL (4.40-5.90) 06/30/17: Hgb 15.8 g/dL (12.0-18.0) 06/30/17: Hct 46.3 % (35.0-51.0) 06/30/17: MCV 96.1 fL (80.0-94.0) H 06/30/17: MCH 32.8 pg (27.0-31.0) H 06/30/17: MCHC 34.2 g/dL (33.0-37.0) 06/30/17: RDW 12.6 % (11.5-14.5) 06/30/17: Plt Count 212 K/uL (130-400) 06/30/17: MPV 8.1 fL (7.2-11.7) 06/30/17: Neut % (Auto) 62.7 % (50.0-75.0) 06/30/17: Lymph % (Auto) 25.3 % (20.0-40.0) 06/30/17: [place] % (Auto) 7.8 % (0.0-10.0) 06/30/17: Eos % (Auto) 3.6 % (0.0-4.0) 06/30/17: Baso % (Auto) 0.6 % (0.0-2.0) 06/30/17: Neut # (Auto) 4.1 K/uL (1.8-7.0) 06/30/17: Lymph # (Auto) 1.7 K/uL (1.0-4.3) 06/30/17: [place] # (Auto) 0.5 K/uL (0.0-0.8) 06/30/17 19: Eos # (Auto) 0.2 K/uL (0.0-0.7) 06/30/17 19:31 Baso # (Auto) 0.0 K/uL (0.0-0.2) 06/30/17 19:31 PT 21.0 SECONDS (9.7-12.2) H 06/30/17 19:31 INR 1.8 06/30/17 19:31 APTT 45 SECONDS (21-34) H 06/30/17 19:31 Sodium 143 mmol/L (132-148) 06/30/17 19:31 Potassium 3.7 mmol/L (3.6-5.2) 06/30/17 19:31 Chloride 102 mmol/L (98-107) 06/30/17 19:31 Carbon Dioxide 27 mmol/L (22-30) 06/30/17 19:31 Anion Gap 17 (10-20) 06/30/17 19:31 BUN 13 mg/dL (9-20) 06/30/17 19:31 Creatinine 1.0 mg/dL (0.8-1.5) 06/30/17 19:31 Est GFR ( Amer) > 60 06/30/17 19:31 Est GFR (Non-Af Amer) > 60 06/30/17 19:31 POC Glucose (mg/dL) 237 mg/dL (65-110) H 07/03/17 16:30 Random Glucose 140 mg/dL (75-110) H 06/30/17 19:31 Hemoglobin A1c 5.9 % (4.2-6.5) 06/30/17 19:31 Calcium 8.9 mg/dl (8.6-10.4) 06/30/17 19:31 Total Bilirubin 0.7 mg/dL (0.2-1.3) 06/30/17 19:31 AST 35 U/L (17-59) 06/30/17 19:31 ALT 41 U/L (21-72) 06/30/17 19:31 Alkaline Phosphatase 58 U/L (38-126) 06/30/17 19:31 Total Creatine Kinase 103 U/L (55-170) 06/30/17 19:31 CK-MB (Mass) 0.77 ng/mL (0.0-3.38) 06/30/17 19:31 Troponin I 0.0170 ng/mL (0.00-0.120) 06/30/17 19:31 NT-Pro-B Natriuret Pep 554 pg/mL (0-900) 06/30/17 19:31 Total Protein 8.6 g/dL (6.3-8.3) H 06/30/17 19:31 Albumin 4.4 g/dL (3.5-5.0) 06/30/17 19: Globulin 4.3 gm/dL (2.2-3.9) H 06/30/17 19:31 Albumin/Globulin Ratio 1.0 (1.0-2.1) 06/30/17 19:31 Triglycerides 86 mg/dL (0-149) 06/30/17 19: Cholesterol 108 mg/dL (0-199) 06/30/17 19: LDL Cholesterol Direct 57 mg/dL (0-129) 06/30/17 19: HDL Cholesterol 40 mg/dL (30-70) 06/30/17 19:31 HIV 1&2 Antibody Screen Negative (NEGATIVE) 07/02/17 17:21 Blood Type A POSITIVE 06/30/17 19:31 Antibody Screen Negative 06/30/17 19:31 - Hospital Course Hospital Course: PT WOKE UP WITH SUDDEN ONSET OF R. SIDED FACIAL SALIVA DROOP WITH NO WEAKNESS ALSO HAS DROOPING R EYE LID . PT WAS EVALUATED IN ER WITH NEG CT HEAD PAST HIST. CAD/STENT/NONSTEMI ON3 ANTICOAGULANTS , BRILLANTA RECENTLY D/RASHAUN T2DM HTN PAROXYSMAL A FIB CT HEAD , CTA HEAD NEG MRI BRAIN, MRA NECK, HEAD NEG PT CONTINUED TO HAVE LOWER R FACE WEAKNESS SPARING THE FOREHEAD CONSISTING WITH CENTRAL IN ORIGIN OF FACIAL PALSY, NO MOTOR/SEN. DEFICIT NEUROLOGY DEFERRED THAT IT WAS LUND'S PALSY IN VIEW OF MULTIPLE RISK , A.FIB,CAD,DM ,HTN IT WAS TREATED CVA PT D/RASHAUN ON ASA = XARELTO 20 MG Discharge Exam - Head Exam Head Exam: NORMAL INSPECTION Discharge Plan - Discharge Medications Prescriptions: Rivaroxaban [Xarelto] 20 mg PO DAILY #30 tab - Follow Up Plan Condition: FAIR Disposition: HOME/ ROUTINE Instructions: Lund's Palsy, Heart Healthy Diet, Rivaroxaban Additional Instructions: Please follow up with Dr. Godoy office next week Please follow with Dr. Lara office on 07/17/17 - Dr. Lara will let you know when to stop anticoagulanats and preocedure schedule - continue to take anticoagulant until instructed by Dr. Lara Continue medication as per med. rec. Referrals: Josue Lara MD [Staff Provider] - Karla Godoy MD [Staff Provider] -
== END 2017-07-03 17:55 | disposition home or self-care (01) | DRG 74 ==
LOC: C.ER 19:12 → C.9E 21:06 → C.6T 21:45
PROVIDERS: ADMIT Internal Medicine Cardiovascular Disease; ATTEND Internal Medicine Cardiovascular Disease
DX: G51.0 Bell's palsy (principal); I48.0 Paroxysmal atrial fibrillation; H02.401 Unspecified ptosis of right eyelid; E11.9 Type 2 diabetes mellitus without complications; I10 Essential (primary) hypertension; I25.10 Atherosclerotic heart disease of native coronary artery without angina pectoris; B07.9 Viral wart, unspecified; I25.2 Old myocardial infarction; Z79.4 Long term (current) use of insulin; Z87.891 Personal history of nicotine dependence; Z95.5 Presence of coronary angioplasty implant and graft; Z79.84 Long term (current) use of oral hypoglycemic drugs

== ENCOUNTER 2018-08-24 11:39 | Observation (INO) | payer OTHER ==
[2018-08-24 11:41] VITALS: BMI 29.0
[2018-08-24 12:48] LABS: BASO % 0.6 % (0.0-2.0); EOS # 0.1 K/uL (0.0-0.7); EOS % 3.3 % (0.0-4.0); HEMOGLOBIN 15.6 g/dL (12.0-18.0); LYMPH # 1.1 K/uL (1.0-4.3); LYMPH % 27.4 % (20.0-40.0); MEAN CELL VOLUME 96.7 fL (80.0-94.0); MEAN CORPUSCULAR HEMOGLOBIN 33.5 pg (27.0-31.0); MEAN CORPUSCULAR HGB CONC 34.6 g/dL (33.0-37.0); MEAN PLATELET VOLUME 8.6 fL (7.2-11.7); MONO # 0.4 K/uL (0.0-0.8); MONO % 8.8 % (0.0-10.0); NEUT # 2.5 K/uL (1.8-7.0); NEUT % 59.9 % (50.0-75.0); RBC 4.65 Mil/uL (4.40-5.90); RED CELL DISTRIBUTION WIDTH 12.4 % (11.5-14.5); WHITE BLOOD COUNT 4.1 K/uL (4.8-10.8)
[2018-08-24 12:55] LABS: INR 1.5; PARTIAL THROMBOPLASTIN TIME 40.7 SECONDS (21-34); PROTHROMBIN TIME 16.3 SECONDS (9.7-12.2)
[2018-08-24 13:07] LABS: ALB/GLOB RATIO 1.2 (1.0-2.1); ALBUMIN 4.3 g/dL (3.5-5.0); ALT/SGPT 37 U/L (21-72); AST/SGOT 42 U/L (17-59); BLOOD UREA NITROGEN 11 mg/dL (9-20); CALCIUM 9.2 mg/dl (8.6-10.4); GFR NON-AFRICAN AMERICAN > 60
--- NOTE | 2018-08-24 13:13 | C.PDOC ---
History Of Present Illness 58 y/o male presents to the ER complaining of constant left sided headache which has been present for the past 1 week. Patient states that he has associated blurry vision. Patient reports that he has occasional palpitations. Denies h aving facial droop, slurred speech, extremity weakness, sensory changes, CP, and SOB. Patient reports that he has PMhx of paroxysmal atrial fibrillation and CAD with 3 stents, ( on Xarelto). Time Seen by Provider: 08/24/18 11:49 Chief Complaint (Nursing): Headache History Per: Patient History/Exam Limitations: no limitations Onset/Duration Of Symptoms: Days Current Symptoms Are (Timing): Still Present Severity: Moderate Past Medical History Reviewed: Historical Data, Nursing Documentation, Vital Signs Vital Signs: Last Vital Signs Temp 98.3 F 08/24/18 11:43 Pulse 68 08/24/18 11:43 Resp 18 08/24/18 11:43 BP 158/102 H 08/24/18 11:43 Pulse Ox 96 08/24/18 11:43 Primary Care Provider: Karla Godoy - Medical History PMH: Cardia Arrhythmia, HTN, Hypercholesterolemia Denies: Chronic Kidney Disease Surgical History: Appendectomy, Cholecystectomy, Coronary Stent (X3) Denies: Pacemaker - [facility] Procedures DILATION OF 2 COR ART WITH 2 DRUG-ELUT, PERC APPROACH (05/17/17) FLUOROSCOPY OF LEFT HEART USING LOW OSMOLAR CONTRAST (05/17/17) FLUOROSCOPY OF MULT COR ART USING L OSM CONTRAST (05/17/17) MEASURE OF CARDIAC SAMPL & PRESSURE, L HEART, PERC APPROACH (05/17/17) Family History: States: No Known Family Hx - Social History Hx Alcohol Use: No Hx Substance Use: No Review Of Systems Except As Marked, All Systems Reviewed And Found Negative. Constitutional: Negative for: Fever, Chills Eyes: Positive for: Vision Change Cardiovascular: Positive for: Palpitations. Negative for: Chest Pain Respiratory: Negative for: Shortness of Breath Gastrointestinal: Negative for: Nausea, Vomiting, Abdominal Pain Neurological: Positive for: Headache. Negative for: Weakness, Numbness Physical Exam - Physical Exam Appears: Non-toxic, No Acute Distress, Other (comfortable) Skin: Normal Color, Warm, Dry Head: Atraumatic, Normacephalic Eye(s): bilateral: Normal Inspection, PERRL, EOMI Nose: Normal Oral Mucosa: Moist Neck: Supple Chest: Symmetrical Cardiovascular: Rhythm Regular Respiratory: Normal Breath Sounds, No Rales, No Rhonchi, No Wheezing Gastrointestinal/Abdominal: Normal Exam, Soft, No Tenderness, No Guarding, No Rebound Neurological/Psych: Oriented x3, Normal Speech, Normal Motor, Normal Sensation ED Course And Treatment - Laboratory Results Result Diagrams: 08/24/18 12:44 08/24/18 12:44 Lab Results: PT 16.3 SECONDS (9.7-12.2) H 08/24/18 12:44 INR 1.5 08/24/18 12:44 APTT 40.7 SECONDS (21-34) H 08/24/18 12:44 O2 Sat by Pulse Oximetry: 96 (RA) Pulse Ox Interpretation: Normal Progress Note: Labs,ECG, and CT-Head ordered. NIHSS Stroke Scale - Date/Time Evaluation Performed Date Performed: 08/24/18 Time Performed: 11:43 When Was NIHSS Performed: Baseline - How Severe is the [place]oke Level of Consciousness: 0=Alert LOC to Questions: 0=Both comments correct LOC to commands: 0=Obeys both correctly Best Gaze: 0=Normal Visual: 0=No visual loss Facial: 0=Normal Motor Arm - Left: 0=No drift Motor Arm - Right: 0=No drift Motor Leg - Left: 0=No drift Motor Leg - Right: 0=No drift Limb Ataxia: 0=Absent Sensory: 0=Normal Best Language: 0=No aphasia Dysarthia: 0=Normal articulation Extinction & Inattention (Neglect): 0=Normal, no object Score: 0 rTPA Inclusion/Exclusion - Refusal of Treatment Patient Refused Treatment: No - Inclusion Criteria for Altepase Patient is 18 years or Older: Yes The Clinical Diagnosis of Ischemic Stroke That is Causing a Potentially Disabling Neurological Deficit: No Time of Onset is Well Established to be Less Than 270 Minute Before Treatment W ould Begin: No Risk/Benefit Discussed With Patient/Family Member Present: No Disposition - Disposition Forms: [employer] (Frisian) - Scribe Statement The provider has reviewed the documentation as recorded by the Scribe Lakesha Baumann Provider Attestation: All medical record entries made by the Scribe were at my direction and personally dictated by me. I have reviewed the chart and agree that the record accurately reflects my personal performance of the history, physical exam, medical decision making, and the department course for this patient. I have also personally directed, reviewed, and agree with the discharge instructions and disposition.
--- NOTE | 2018-08-24 15:24 | CT ---
Date of service: 08/24/2018 PROCEDURE: CT HEAD WITHOUT CONTRAST. HISTORY: HEADACHE, RIGHT EYE BLURRY VISION COMPARISON: 07/02/2017 TECHNIQUE: Axial computed tomography images were obtained through the head/brain without intravenous contrast. Radiation dose: Total exam DLP = 1102.06 mGy-cm. This CT exam was performed using one or more of the following dose reduction techniques: Automated exposure control, adjustment of the mA and/or kV according to patient size, and/or use of iterative reconstruction technique. FINDINGS: HEMORRHAGE: No intracranial hemorrhage. BRAIN: No mass effect or edema. No atrophy or chronic microvascular ischemic changes. VENTRICLES: Unremarkable. No hydrocephalus. CALVARIUM: Unremarkable. PARANASAL SINUSES: Chronic ethmoid sinusitis. Small sphenoid retention cyst/polyp. MASTOID AIR CELLS: Very small nonspecific right mastoid effusion. Probable cerumen in right external auditory canal. Correlate with direct visual inspection. OTHER FINDINGS: None. IMPRESSION: No intracranial mass, hemorrhage or evidence of acute infarct. Chronic ethmoid sinusitis. Small sphenoid retention cyst/polyp. Minimal right mastoid effusion common nonspecific.
--- NOTE | 2018-08-24 15:39 | CT ---
Date of service: 08/24/2018 PROCEDURE: CTA HEAD AND NECK WITH CONTRAST HISTORY: L HEADACHE, R BLURRY VISION, H/O A FIB COMPARISON: 06/30/2017. TECHNIQUE: Initial noncontrast head CT was performed. Subsequently, CT angiogram of the head and neck were performed after the intravenous administration of 80 mL of Omnipaque 350. Contiguous 1.5mm thick images were obtained in the axial plane of the neck. 2-D coronal and sagittal MPR images were obtained. Imaging postprocessing was performed with 3-D images also obtained. A delayed contrast head CT was also obtained. This CT exam was performed using one or more of the following dose reduction techniques: Automated exposure control, adjustment of the mA and/or kV according to patient size, and/or use of iterative reconstruction technique. Contrast dose: 100 mL Visipaque 320 Radiation dose: Total exam DLP = 589.57 mGy-cm. FINDINGS: HEAD: Right: The intracranial internal carotid artery, and anterior and middle cerebral arteries are widely patent. Left: The intracranial internal carotid artery, and anterior and middle cerebral arteries are widely patent. There are atherosclerotic calcifications in the cavernous carotid arteries. Posterior circulation: The visualized intracranial vertebral arteries, basilar artery and posterior cerebral arteries are widely patent. There is no endoluminal filling defect to suggest thrombus. There is no intracranial saccular aneurysm. NECK: There is a three vessel aortic arch. There is no stenosis at the origins of the great vessels at the level of the aortic arch. There are mild coarse atherosclerotic calcifications in the right carotid bulb. Right Carotid: On the right, the common carotid, internal carotid and external carotid arteries are widely patent. There is no hemodynamically significant stenosis in the internal carotid artery by NASCET criteria. Left Carotid: On the left, the common carotid, internal carotid and external carotid arteries are widely patent. There is no hemodynamically significant stenosis in the internal carotid artery by NASCET criteria. The vertebral arteries are widely patent. The right vertebral artery is hypoplastic, an anatomic variant. The visualized soft tissues of the neck are normal. The visualized brain and cervical spine are within normal limits. The lung apices are clear. IMPRESSION: 1. No evidence of endoluminal thrombus,occlusion or definite significant stenosis in the intracranial arteries. 2. No evidence of hemodynamically significant stenosis in the internal carotid arteries. 3. Patent bilateral vertebral arteries.
[2018-08-24] MEDS: Potassium Chloride 20 mEq ER Tab PO STA ×2 (16:20→16:29)
[2018-08-24] MEDS ORDERED: Potassium Chloride 20 mEq ER Tab PO ONE (16:22)
[2018-08-24] MEDS ORDERED: Potassium Chloride 20 mEq/15 ml LIQ UD ONE (16:29)
[2018-08-24 19:10] VITALS: RESP 20
[2018-08-24] MEDS: (Novolin R) Insulin Human Regular 100 units/ml vial SC SCH (22:00)
[2018-08-24] MEDS ORDERED: MethylPREDNISolone 40 mg Vial IVP STA (23:14)
--- NOTE | 2018-08-24 23:18 | CP.PCM.HP ---
History of Present Illness - History of Present Illness History of Present Illness: 58 YEARS OLD ADMITTED WITH BLURRY VISION OF LEFT EYE WITH TEMPORAL HEADACHE HAS H/O CAD/2 STENTS HTN T2DM AND PAROXYSMAL A. FIB ON XARELTO CLAIMS SAW OPTHALMOLOGY AND DECLARED NO EYE DEFECTS Present on Admission - Present on Admission Any Indicators Present on Admission: No Review of Systems - Review of Systems All systems: reviewed and no additional remarkable complaints except (HEADACHE WIT L VISUAL DEFECT) Past Patient History - Past Medical History & Family History Past Medical History?: Yes - Past Social History Smoking Status: Never Smoked - CARDIAC Hx Cardia Arrhythmia: Yes Hx Hypercholesterolemia: Yes Hx Hypertension: Yes Hx Pacemaker: No - PULMONARY Hx Respiratory Disorders: No - NEUROLOGICAL Hx Neurological Disorder: Yes (LUND'S PALSY) HX Cerebrovascular Accident: Yes - HEENT Hx HEENT Problems: No - RENAL Hx Chronic Kidney Disease: No - ENDOCRINE/METABOLIC Hx Endocrine Disorders: Yes Hx Diabetes Mellitus Type 2: Yes - HEMATOLOGICAL/ONCOLOGICAL Hx Blood Disorders: No - INTEGUMENTARY Hx Dermatological Problems: No - MUSCULOSKELETAL/RHEUMATOLOGICAL Hx Musculoskeletal Disorders: Yes Hx Falls: No - GASTROINTESTINAL Hx Gastrointestinal Disorders: No - GENITOURINARY/GYNECOLOGICAL Hx Genitourinary Disorders: No - PSYCHIATRIC Hx Substance Use: No - SURGICAL HISTORY Hx Appendectomy: Yes Hx Cholecystectomy: Yes Hx Coronary Stent: Yes (X3) - ANESTHESIA Hx Anesthesia: Yes Hx Anesthesia Reactions: No Hx Malignant Hyperthermia: No Has any member of the family had a problem w/ anesthesia?: No Meds Allergies/Adverse Reactions: Allergies Allergy/AdvReac Type Severity Reaction Status Date / Time No Known Allergies Allergy Verified 09/18/17 20:29 Physical Exam - Constitutional Appears: Well - Head Exam Head Exam: ATRAUMATIC, NORMAL INSPECTION, NORMOCEPHALIC - Eye Exam Eye Exam: EOMI, Normal appearance, PERRL. absent: Periorbital swelling, Periorbital tenderness - ENT Exam ENT Exam: Mucous Membranes Moist, Normal Exam - Neck Exam Neck exam: Positive for: Normal Inspection - Respiratory Exam Respiratory Exam: Clear to Auscultation Bilateral, NORMAL BREATHING PATTERN - Cardiovascular Exam Cardiovascular Exam: REGULAR RHYTHM - GI/Abdominal Exam GI & Abdominal Exam: Normal Bowel Sounds, Soft. absent: Tenderness - Extremities Exam Extremities exam: Positive for: normal inspection - Back Exam Back exam: NORMAL INSPECTION - Psychiatric Exam Psychiatric exam: Normal Affect, Normal Mood Results - Vital Signs Recent Vital Signs: Last Vital Signs Temp 97.7 F 08/24/18 18:26 Pulse 48 L 08/24/18 22:29 Resp 20 08/24/18 18:26 BP 117/77 08/24/18 18:26 Pulse Ox 97 08/24/18 18:26 - Labs Result Diagrams: 08/24/18 12:44 08/24/18 12:44 Labs: Laboratory Results - last 24 hr 08/24/18 08/24/18 08/24/18 11:46 12:44 12:44 WBC 4.1 L RBC 4.65 Hgb 15.6 Hct 45.0 MCV 96.7 H MCH 33.5 H MCHC 34.6 RDW 12.4 Plt Count 149 MPV 8.6 Neut % (Auto) 59.9 Lymph % (Auto) 27.4 [place] % (Auto) 8.8 Eos % (Auto) 3.3 Baso % (Auto) 0.6 Neut # (Auto) 2.5 Lymph # (Auto) 1.1 [place] # (Auto) 0.4 Eos # (Auto) 0.1 Baso # (Auto) 0.0 PT 16.3 H INR 1.5 APTT 40.7 H Sodium Potassium Chloride Carbon Dioxide Anion Gap BUN Creatinine Est GFR ( Amer) Est GFR (Non-Af Amer) POC Glucose (mg/dL) 236 H Random Glucose Calcium Total Bilirubin AST ALT Alkaline Phosphatase Total Creatine Kinase CK-MB (Mass) Troponin I Total Protein Albumin Globulin Albumin/Globulin Ratio 08/24/18 12:44 WBC RBC Hgb Hct MCV MCH MCHC RDW Plt Count MPV Neut % (Auto) Lymph % (Auto) [place] % (Auto) Eos % (Auto) Baso % (Auto) Neut # (Auto) Lymph # (Auto) [place] # (Auto) Eos # (Auto) Baso # (Auto) PT INR APTT Sodium 141 Potassium 3.5 L Chloride 102 Carbon Dioxide 26 Anion Gap 16 BUN 11 Creatinine 0.9 Est GFR ( Amer) > 60 Est GFR (Non-Af Amer) > 60 POC Glucose (mg/dL) Random Glucose 178 H D Calcium 9.2 Total Bilirubin 0.7 AST 42 ALT 37 Alkaline Phosphatase 59 Total Creatine Kinase 82 CK-MB (Mass) 0.70 Troponin I < 0.0120 Total Protein 7.9 Albumin 4.3 Globulin 3.6 Albumin/Globulin Ratio 1.2 Assessment & Plan (1) Temporal arteritis Status: Acute Comment: NEED TO R/O STILL SED RATE CHECKED (2) Retinal embolus, left eye Status: Acute Comment: WILL START HEPARIN
[2018-08-24] MEDS ORDERED: Heparin25000 units/250ml 1/2NS 25,000 UNITS/250 ML BAG IV PRN (23:31)
[2018-08-25 06:40] LABS: HEMOGLOBIN 15.5 g/dL (12.0-18.0); MEAN CELL VOLUME 96.7 fL (80.0-94.0); MEAN CORPUSCULAR HEMOGLOBIN 33.3 pg (27.0-31.0); MEAN CORPUSCULAR HGB CONC 34.4 g/dL (33.0-37.0); RBC 4.67 Mil/uL (4.40-5.90); RED CELL DISTRIBUTION WIDTH 12.6 % (11.5-14.5); WHITE BLOOD COUNT 4.3 K/uL (4.8-10.8)
[2018-08-25 07:19] LABS: ALB/GLOB RATIO 1.2 (1.0-2.1); ALBUMIN 3.8 g/dL (3.5-5.0); ALT/SGPT 46 U/L (21-72); AST/SGOT 33 U/L (17-59); BLOOD UREA NITROGEN 8 mg/dL (9-20); CALCIUM 8.3 mg/dl (8.6-10.4); GFR NON-AFRICAN AMERICAN > 60; HDL CHOLESTEROL 43 mg/dL (30-70)
[2018-08-25 07:30] LABS: LDL CHOLESTEROL 65 mg/dL (0-129)
[2018-08-25] MEDS: (Novolin R) Insulin Human Regular 100 units/ml vial SC SCH ×4 (08:10→21:10)
--- NOTE | 2018-08-25 10:41 | CP.PCM.CON ---
<Devin Ma - Last Filed: 08/25/18 15:30> History of Present Illness - History of Present Illness History of Present Illness: PGY-1 neurology consult note for Dr Zimmerman Patient is 58 year old male with pmhx of afib, CAD s/p stents, DMII, HTN, HLD, bells palsy, came to the ER yesterday complaining of blurry vision on right eye that started last thursday. Patient states this is the first time that happens, originally believed to be related to his eye glasses and went to change his glasses, however, he continued experiencing blurry vision on right eye, initially that will come and go, but pt states now blurry vision is constant. Admits to seeing double, but patient denies double vision when covering one eye. Patient admits to headaches on the top left side of head. States vision gets worse when having headaches. Patient has tried aspirin and sinus medication for headache with no relief. Patient denies dizziness, weakness in 4 extremities, loss of consciousness, falls, trauma to head, denies tenderness to side of face. Denies any fevers, chills, nausea or vomiting. Denies speech or hearing impairment. Patient admits to having weakness on left side of face last year for which he was admitted and diagnosed with dewitt's palsy. Denies any history of stroke, neurological deficits or seizures. CT head on this admission is negative for IC mass, hemorrhage, no evidence of acute infarct. CTA head and neck shows no evidence of thrombus occlusion or definite stenosis on internal carotid arteries. Pmhx/Shx: as stated above, cholecystectomy All: NKDA Meds: Xarelto, Crestor, Atenolol, losartan, glipizide, repaglamide fhx: Stroke (mother) Sochx: former smoker, 2ppd for 15 years, quitted about 30 years ago, social drinker, denies drug use, works as delivery analyst for [employer] Past Patient History - Past Medical History & Family History Past Medical History?: Yes - Past Social History Smoking Status: Never Smoked - CARDIAC Hx Cardia Arrhythmia: Yes Hx Hypercholesterolemia: Yes Hx Hypertension: Yes Hx Pacemaker: No - PULMONARY Hx Respiratory Disorders: No - NEUROLOGICAL Hx Neurological Disorder: Yes (DEWITT'S PALSY) HX Cerebrovascular Accident: Yes - HEENT Hx HEENT Problems: No - RENAL Hx Chronic Kidney Disease: No - ENDOCRINE/METABOLIC Hx Endocrine Disorders: Yes Hx Diabetes Mellitus Type 2: Yes - HEMATOLOGICAL/ONCOLOGICAL Hx Blood Disorders: No - INTEGUMENTARY Hx Dermatological Problems: No - MUSCULOSKELETAL/RHEUMATOLOGICAL Hx Musculoskeletal Disorders: Yes Hx Falls: No - GASTROINTESTINAL Hx Gastrointestinal Disorders: No - GENITOURINARY/GYNECOLOGICAL Hx Genitourinary Disorders: No - PSYCHIATRIC Hx Substance Use: No - SURGICAL HISTORY Hx Appendectomy: Yes Hx Cholecystectomy: Yes Hx Coronary Stent: Yes (X3) - ANESTHESIA Hx Anesthesia: Yes Hx Anesthesia Reactions: No Hx Malignant Hyperthermia: No Has any member of the family had a problem w/ anesthesia?: No Meds Allergies/Adverse Reactions: Allergies Allergy/AdvReac Type Severity Reaction Status Date / Time No Known Allergies Allergy Verified 09/18/17 20:29 - Medications Medications: Current Medications Acetaminophen (Tylenol 325mg Tab) 650 mg PO Q6 PRN PRN Reason: 3-7 pain Last Admin: 08/24/18 19:54 Dose: 650 mg Aspirin (Aspirin Chewable) 81 mg PO DAILY [facility] Last Admin: 08/25/18 10:06 Dose: 81 mg Atenolol (Tenormin) 25 mg PO DAILY [facility] Last Admin: 08/25/18 10:05 Dose: 25 mg Famotidine (Pepcid) 20 mg PO DAILY [facility] Last Admin: 08/25/18 10:06 Dose: 20 mg Glipizide (Glucotrol) 10 mg PO ACB [facility] Last Admin: 08/25/18 08:10 Dose: 10 mg Heparin Sodium/Sodium Chloride (Heparin 90211 Units/250ml 1/2 Normal Saline) 25,000 units in 250 mls @ 16.737 mls/hr IV .[id number] PRN; Protocol PRN Reason: ADJUST RATE PER PROTOCOL Last Admin: 08/25/18 00:20 Dose: 18 units/kg/hr, 16.737 mls/hr Insulin Human Regular (Novolin R) 0 unit SC ACHS [facility]; Protocol Last Admin: 08/25/18 08:10 Dose: 2 units Losartan Potassium (Cozaar) 25 mg PO DAILY [facility] Last Admin: 08/25/18 10:05 Dose: 25 mg Repaglinide (Prandin) 2 mg PO ACTID [facility] Last Admin: 08/25/18 08:10 Dose: 2 mg Rosuvastatin Calcium (Crestor) 20 mg PO HS [facility] Last Admin: 08/24/18 21:59 Dose: 20 mg Physical Exam - Constitutional Appears: Non-toxic, No Acute Distress - Head Exam Head Exam: ATRAUMATIC, NORMAL INSPECTION, NORMOCEPHALIC - Eye Exam Eye Exam: PERRL. absent: Conjunctival injection, Nystagmus, Periorbital swelling, Periorbital tenderness Pupil Exam: NORMAL ACCOMODATION, PERRL Additional comments: Rt eye lateral deviation - ENT Exam ENT Exam: Mucous Membranes Moist, Normal Exam - Neck Exam Neck exam: Positive for: Normal Inspection - Respiratory Exam Respiratory Exam: NORMAL BREATHING PATTERN - Extremities Exam Extremities exam: Positive for: full ROM, normal inspection - Neurological Exam Neurological exam: Alert, CN II-XII Intact, Normal Gait, Oriented x3, Reflexes Normal - Expanded Neurological Exam Expanded Patient oriented to: person, place, time Speech: Fluid Speech Cranial nerves: EOM's Intact: Normal, Facial Palsey w/Forehead Movement: Normal, Facial Palsey w/o Forehead Movement: Normal, Facial Sensation: Normal, Nystagmus: Normal, Tongue Deviation: Normal Ataxia: No Cerebellar Function: Finger to Nose: Normal, Heel to Julio: Normal, Romberg: Normal Upper motor neuron: Pronator Drift: Normal Sensory exam: Lower Extremity Light Touch: Normal, Upper Extremity Light Touch: Normal Neuro motor strength exam: Left Upper Extremity: 5, Right Upper Extremity: 5, Left Lower Extremity: 5, Right Lower Extremity: 5 DTR: Patellar Left: 2+, Patellar Right: 3+ - Psychiatric Exam Psychiatric exam: Normal Affect, Normal Mood Results - Vital Signs Recent Vital Signs: Last Vital Signs Temp 97.7 F 08/25/18 07:05 Pulse 66 08/25/18 07:05 Resp 20 08/25/18 07:05 BP 125/79 08/25/18 07:05 Pulse Ox 95 08/25/18 07:05 - Labs Result Diagrams: 08/25/18 06:35 08/25/18 06:35 Labs: Laboratory Results - last 24 hr 08/24/18 08/24/18 08/24/18 11:46 12:44 12:44 WBC 4.1 L RBC 4.65 Hgb 15.6 Hct 45.0 MCV 96.7 H MCH 33.5 H MCHC 34.6 RDW 12.4 Plt Count 149 MPV 8.6 Neut % (Auto) 59.9 Lymph % (Auto) 27.4 [place] % (Auto) 8.8 Eos % (Auto) 3.3 Baso % (Auto) 0.6 Neut # (Auto) 2.5 Lymph # (Auto) 1.1 [place] # (Auto) 0.4 Eos # (Auto) 0.1 Baso # (Auto) 0.0 ESR PT 16.3 H INR 1.5 APTT 40.7 H Sodium Potassium Chloride Carbon Dioxide Anion Gap BUN Creatinine Est GFR ( Amer) Est GFR (Non-Af Amer) POC Glucose (mg/dL) 236 H Random Glucose Calcium Total Bilirubin AST ALT Alkaline Phosphatase Total Creatine Kinase CK-MB (Mass) Troponin I Total Protein Albumin Globulin Albumin/Globulin Ratio Triglycerides Cholesterol LDL Cholesterol Direct HDL Cholesterol 08/24/18 08/25/18 08/25/18 12:44 06:35 06:35 WBC 4.3 L RBC 4.67 Hgb 15.5 Hct 45.2 MCV 96.7 H MCH 33.3 H MCHC 34.4 RDW 12.6 Plt Count 163 MPV 9.0 Neut % (Auto) Lymph % (Auto) [place] % (Auto) Eos % (Auto) Baso % (Auto) Neut # (Auto) Lymph # (Auto) [place] # (Auto) Eos # (Auto) Baso # (Auto) ESR 4 PT INR APTT Sodium 141 136 Potassium 3.5 L 3.9 Chloride 102 102 Carbon Dioxide 26 25 Anion Gap 16 12 BUN 11 8 L Creatinine 0.9 0.8 Est GFR ( Amer) > 60 > 60 Est GFR (Non-Af Amer) > 60 > 60 POC Glucose (mg/dL) Random Glucose 178 H D 211 H Calcium 9.2 8.3 L Total Bilirubin 0.7 0.8 AST 42 33 ALT 37 46 Alkaline Phosphatase 59 67 Total Creatine Kinase 82 CK-MB (Mass) 0.70 Troponin I < 0.0120 Total Protein 7.9 7.1 Albumin 4.3 3.8 Globulin 3.6 3.3 Albumin/Globulin Ratio 1.2 1.2 Triglycerides 44 D Cholesterol 109 LDL Cholesterol Direct 65 HDL Cholesterol 43 08/25/18 07:26 WBC RBC Hgb Hct MCV MCH MCHC RDW Plt Count MPV Neut % (Auto) Lymph % (Auto) [place] % (Auto) Eos % (Auto) Baso % (Auto) Neut # (Auto) Lymph # (Auto) [place] # (Auto) Eos # (Auto) Baso # (Auto) ESR PT INR APTT > 400.0 H* D Sodium Potassium Chloride Carbon Dioxide Anion Gap BUN Creatinine Est GFR ( Amer) Est GFR (Non-Af Amer) POC Glucose (mg/dL) Random Glucose Calcium Total Bilirubin AST ALT Alkaline Phosphatase Total Creatine Kinase CK-MB (Mass) Troponin I Total Protein Albumin Globulin Albumin/Globulin Ratio Triglycerides Cholesterol LDL Cholesterol Direct HDL Cholesterol Assessment & Plan - Assessment and Plan (Free Text) Plan: 58 year old male with pmhx of afib, DMII, CAD s/p stents HLD, HTN, bells palsy presenting with right blurry vision and left upper head headaches for the past week. Head CT and CTA head and neck are unremarkable, rule out acute stroke/MLF lesion vs retinal embolus 2/2 afib 1. Brain MRI w/o contrast 2. recommend D/C heparin drip and start eliquis 5mg BID when PTT less than 100 (PTT currently > 400). Continue checking PTT every 6 hours until PTT is back to normal levels. 3. ordered HbA1C 4. continue medical management as per primary plan d/w Dr martha Ma, PGY-1 - Date & Time Date: 08/25/18 Time: 10:58 <Nehemiah Zimmerman - Last Filed: 08/26/18 15:18> Meds - Medications Medications: Current Medications Acetaminophen (Tylenol 325mg Tab) 650 mg PO Q6 PRN PRN Reason: 3-7 pain Last Admin: 08/24/18 19:54 Dose: 650 mg Apixaban (Eliquis) 5 mg PO BID [facility] Last Admin: 08/26/18 12:00 Dose: 5 mg Aspirin (Aspirin Chewable) 81 mg PO DAILY [facility] Last Admin: 08/26/18 09:40 Dose: 81 mg Atenolol (Tenormin) 25 mg PO DAILY [facility] Last Admin: 08/26/18 09:40 Dose: 25 mg Famotidine (Pepcid) 20 mg PO DAILY [facility] Last Admin: 08/26/18 09:40 Dose: 20 mg Glipizide (Glucotrol) 10 mg PO ACB [facility] Last Admin: 08/26/18 08:13 Dose: 10 mg Insulin Human Regular (Novolin R) 0 unit SC ACHS [facility]; Protocol Last Admin: 08/26/18 12:30 Dose: 2 units Losartan Potassium (Cozaar) 25 mg PO DAILY [facility] Last Admin: 08/26/18 09:40 Dose: 25 mg Repaglinide (Prandin) 2 mg PO ACTID [facility] Last Admin: 08/26/18 12:00 Dose: 2 mg Rosuvastatin Calcium (Crestor) 20 mg PO HS [facility] Last Admin: 08/25/18 21:22 Dose: 20 mg Results - Vital Signs Recent Vital Signs: Last Vital Signs Temp 97.9 F 08/26/18 07:00 Pulse 100 H 08/26/18 07:00 Resp 20 08/26/18 07:00 BP 120/83 08/26/18 07:00 Pulse Ox 97 08/26/18 07:00 - Labs Result Diagrams: 08/25/18 06:35 08/25/18 06:35 Labs: Laboratory Results - last 24 hr 08/24/18 08/25/18 08/25/18 20:52 06:09 11:14 APTT POC Glucose (mg/dL) 122 H 196 H 272 H Hemoglobin A1c 08/25/18 08/25/18 08/25/18 16:06 21:04 21:22 APTT 34.7 H D POC Glucose (mg/dL) 225 H 237 H Hemoglobin A1c 08/26/18 08/26/18 08/26/18 06:14 06:44 10:57 APTT POC Glucose (mg/dL) 185 H 193 H Hemoglobin A1c 6.7 H Attending/Attestation - Attestation I have personally seen and examined this patient.: Yes I have fully participated in the care of the patient.: Yes I have reviewed all pertinent clinical information: Yes Notes (Text): I agree with the assessment and plan as outlined above.
--- NOTE | 2018-08-25 11:48 | CP.PCM.PN ---
Subjective - Date & Time of Evaluation Date of Evaluation: 08/25/18 Time of Evaluation: 11:46 - Subjective Subjective: INITIAL SYMPTOMS ON PRESENTATION LESS VS STABLE P/E UNCHANGED ESR IS 4 , UNLIKELY TEMP ARTERITIS , D/C STEROIDS ON HEPARIN , AWAITING CONCLUSION FROM NEURO Objective - Vital Signs/Intake and Output Vital Signs (last 24 hours): Temp Pulse Resp BP Pulse Ox 97.7 F 58 L 20 125/79 95 08/25/18 07:05 08/25/18 07:30 08/25/18 07:05 08/25/18 07:05 08/25/18 11:12 Intake and Output: 08/24/18 08/25/18 23:59 11:59 Intake Total 400 224 Balance 400 224 - Medications Medications: Current Medications Acetaminophen (Tylenol 325mg Tab) 650 mg PO Q6 PRN PRN Reason: 3-7 pain Last Admin: 08/24/18 19:54 Dose: 650 mg Aspirin (Aspirin Chewable) 81 mg PO DAILY [facility] Last Admin: 08/25/18 10:06 Dose: 81 mg Atenolol (Tenormin) 25 mg PO DAILY [facility] Last Admin: 08/25/18 10:05 Dose: 25 mg Famotidine (Pepcid) 20 mg PO DAILY [facility] Last Admin: 08/25/18 10:06 Dose: 20 mg Glipizide (Glucotrol) 10 mg PO ACB [facility] Last Admin: 08/25/18 08:10 Dose: 10 mg Heparin Sodium/Sodium Chloride (Heparin 81612 Units/250ml 1/2 Normal Saline) 25,000 units in 250 mls @ 16.737 mls/hr IV .[id number] PRN; Protocol PRN Reason: ADJUST RATE PER PROTOCOL Last Admin: 08/25/18 00:20 Dose: 18 units/kg/hr, 16.737 mls/hr Insulin Human Regular (Novolin R) 0 unit SC ACHS [facility]; Protocol Last Admin: 08/25/18 11:22 Dose: 4 units Losartan Potassium (Cozaar) 25 mg PO DAILY [facility] Last Admin: 08/25/18 10:05 Dose: 25 mg Repaglinide (Prandin) 2 mg PO ACTID [facility] Last Admin: 08/25/18 11:22 Dose: 2 mg Rosuvastatin Calcium (Crestor) 20 mg PO HS [facility] Last Admin: 08/24/18 21:59 Dose: 20 mg - Labs Labs: 08/25/18 06:35 08/25/18 06:35 PT 16.3 SECONDS (9.7-12.2) H 08/24/18 12:44 INR 1.5 08/24/18 12:44 APTT > 400.0 SECONDS (21-34) H* D 08/25/18 07:26 Assessment and Plan (1) Temporal arteritis Status: Acute (2) Retinal embolus, left eye Status: Acute
--- NOTE | 2018-08-25 11:59 | CARD ---
APPROVED REPORT Date of service: 08/24/2018 EKG Measurement Heart [id number] <Conclusion> Normal sinus rhythm Normal ECG
--- NOTE | 2018-08-25 17:27 | MRI ---
Date of service: 08/25/2018 PROCEDURE: MRI BRAIN WITHOUT CONTRAST HISTORY: right eye blurry vision, left side headache COMPARISON: MRI brain without contrast from 07/03/[address] from 08/24/2018 TECHNIQUE: Multiplanar, multisequence MR images of the brain were obtained without intravenous contrast enhancement. FINDINGS: HEMORRHAGE: None DWI: No evidence of an acute or early subacute infarction. BRAIN PARENCHYMA: Arauz-white matter differentiation is preserved. There is no mass, mass effect or abnormal extra-axial fluid collection. There is no territorial infarction. The midline sagittal structures are normal. VENTRICLES: There is mild age-related global parenchymal volume loss and proportionate enlargement of the ventricles and cortical sulci. CRANIUM: There is normal bone marrow signal pattern. ORBITS: Grossly unremarkable. PARANASAL SINUSES/MASTOIDS: There is mild mucosal thickening in the ethmoid air cells. There is a retention cyst/polyp in the left maxillary sinus and small retention cyst/polyp in the right anterior sphenoid chamber. Small right and trace left mastoid effusions. VASCULAR SYSTEM: There are normal signal voids in the larger intracranial arteries. OTHER FINDINGS: None. IMPRESSION: No acute intracranial abnormality. Mild age-related global parenchymal volume loss. Retention cyst/polyp in the left maxillary sinus and small retention cyst/polyp in the right anterior sphenoid chamber. Small right and trace left mastoid effusions.
[2018-08-26 04:28] VITALS: TEMP 97.9
[2018-08-26] MEDS: (Novolin R) Insulin Human Regular 100 units/ml vial SC SCH ×3 (08:13→17:16)
--- NOTE | 2018-08-26 11:28 | CP.PCM.PN ---
<Devin Ma - Last Filed: 08/26/18 15:27> Subjective - Date & Time of Evaluation Date of Evaluation: 08/26/18 Time of Evaluation: 10:30 - Subjective Subjective: PGY-1 Neuro progress note for Dr Zimmerman Patient is seen and examined at bedside. Patient continues to experience blurry vision and diplopia on right eye, states patient can see objects on his left side, but not on his right side. Patient admits to improvement of headaches. 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 Denies fever, chills, weakness, hearing changes. Patient ambulates and is eating with no difficulty. Objective - Vital Signs/Intake and Output Vital Signs (last 24 hours): Temp Pulse Resp BP Pulse Ox 97.9 F 100 H 20 120/83 97 08/26/18 07:00 08/26/18 07:00 08/26/18 07:00 08/26/18 07:00 08/26/18 07:00 - Medications Medications: Current Medications Acetaminophen (Tylenol 325mg Tab) 650 mg PO Q6 PRN PRN Reason: 3-7 pain Last Admin: 08/24/18 19:54 Dose: 650 mg Apixaban (Eliquis) 5 mg PO BID [facility] Aspirin (Aspirin Chewable) 81 mg PO DAILY [facility] Last Admin: 08/26/18 09:40 Dose: 81 mg Atenolol (Tenormin) 25 mg PO DAILY [facility] Last Admin: 08/26/18 09:40 Dose: 25 mg Famotidine (Pepcid) 20 mg PO DAILY [facility] Last Admin: 08/26/18 09:40 Dose: 20 mg Glipizide (Glucotrol) 10 mg PO ACB [facility] Last Admin: 08/26/18 08:13 Dose: 10 mg Insulin Human Regular (Novolin R) 0 unit SC ACHS [facility]; Protocol Last Admin: 08/26/18 08:13 Dose: 2 units Losartan Potassium (Cozaar) 25 mg PO DAILY [facility] Last Admin: 08/26/18 09:40 Dose: 25 mg Repaglinide (Prandin) 2 mg PO ACTID [facility] Last Admin: 08/26/18 08:00 Dose: 2 mg Rosuvastatin Calcium (Crestor) 20 mg PO HS [facility] Last Admin: 05/15/19 21:22 Dose: 20 mg - Labs Labs: 08/25/18 06:35 08/25/18 06:35 PT 16.3 SECONDS (9.7-12.2) H 08/24/18 12:44 INR 1.5 08/24/18 12:44 APTT 34.7 SECONDS (21-34) H D 08/25/18 21:22 - Constitutional Appears: Non-toxic, No Acute Distress - Head Exam Head Exam: ATRAUMATIC, NORMAL INSPECTION, NORMOCEPHALIC - Eye Exam Eye Exam: EOMI, Normal appearance, PERRL. absent: Conjunctival injection, Nystagmus, Periorbital swelling Pupil Exam: NORMAL ACCOMODATION Additional comments: right eye laterally deviated - ENT Exam ENT Exam: Mucous Membranes Moist - Neurological Exam Neurological Exam: Alert, Awake, CN II-XII Intact, Oriented x3, Reflexes Normal Neuro motor strength exam: Left Upper Extremity: 5, Right Upper Extremity: 5, Left Lower Extremity: 5, Right Lower Extremity: 5 Assessment and Plan - Assessment and Plan (Free Text) Plan: 58 year old male with pmhx of afib, DMII, CAD s/p stents HLD, HTN, bells palsy presenting with right blurry vision and left upper head headaches for the past week. Head CT and CTA head and neck are unremarkable. Brain MRI shows no acute IC abnormalities, global parenchymal volume loss. 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 Patient recommended to use right eye patch as long as double vision continues. Continue elliquis 5mg PO BID, continue diabetes management and follow up with PMD. PT/OT recommended for double vision management. Patient clear to d/c home as per neurology, please re consult as needed. Plan d/w Dr Elsie Ma, PGY-1 <Nehemiah Zimmerman - Last Filed: 08/27/18 18:53> Objective - Vital Signs/Intake and Output Vital Signs (last 24 hours): Temp Pulse Resp BP Pulse Ox 97.9 F 62 20 159/85 H 96 08/26/18 15:30 08/26/18 16:00 08/26/18 15:30 08/26/18 15:30 08/26/18 15:30 - Labs Labs: 08/25/18 06:35 08/25/18 06:35 PT 16.3 SECONDS (9.7-12.2) H 08/24/18 12:44 INR 1.5 08/24/18 12:44 APTT 34.7 SECONDS (21-34) H D 08/25/18 21:22 Attending/Attestation - Attestation I have personally seen and examined this patient.: Yes I have fully participated in the care of the patient.: Yes I have reviewed all pertinent clinical information, including history, physical exam and plan: Yes Notes (Text): I agree with the assessment and plan as outlined above.
--- NOTE | 2018-08-26 11:56 | CP.PCM.DIS ---
Provider - Provider Date of Admission: 08/24/18 16:11 Attending physician: Karla Godoy MD Consults: 08/24/18 16:15 Physician Consult Routine Comment: right side blurry vision, a fib history Consulting Provider: Nehemiah Zimmerman Consulting Physician: Nehemiah Zimmerman Reason for Consult: neurology Time Spent in preparation of Discharge (in minutes): 35 Diagnosis - Discharge Diagnosis (1) Temporal arteritis Status: Acute (2) Retinal embolus, left eye Status: Acute Hospital Course - Lab Results Lab Results: Most Recent Lab Values WBC 4.3 K/uL (4.8-10.8) L 08/25/18 06:35 RBC 4.67 Mil/uL (4.40-5.90) 08/25/18 06:35 Hgb 15.5 g/dL (12.0-18.0) 08/25/18 06:35 Hct 45.2 % (35.0-51.0) 08/25/18 06:35 MCV 96.7 fL (80.0-94.0) H 08/25/18 06:35 MCH 33.3 pg (27.0-31.0) H 08/25/18 06:35 MCHC 34.4 g/dL (33.0-37.0) 08/25/18 06:35 RDW 12.6 % (11.5-14.5) 08/25/18 06:35 Plt Count 163 K/uL (130-400) 08/25/18 06:35 MPV 9.0 fL (7.2-11.7) 08/25/18 06:35 Neut % (Auto) 59.9 % (50.0-75.0) 08/24/18 12:44 Lymph % (Auto) 27.4 % (20.0-40.0) 08/24/18 12:44 [place] % (Auto) 8.8 % (0.0-10.0) 08/24/18 12:44 Eos % (Auto) 3.3 % (0.0-4.0) 08/24/18 12:44 Baso % (Auto) 0.6 % (0.0-2.0) 08/24/18 12:44 Neut # (Auto) 2.5 K/uL (1.8-7.0) 08/24/18 12:44 Lymph # (Auto) 1.1 K/uL (1.0-4.3) 08/24/18 12:44 [place] # (Auto) 0.4 K/uL (0.0-0.8) 08/24/18 12:44 Eos # (Auto) 0.1 K/uL (0.0-0.7) 08/24/18 12:44 Baso # (Auto) 0.0 K/uL (0.0-0.2) 08/24/18 12:44 ESR 4 mm/hr (0-15) 08/25/18 06:35 PT 16.3 SECONDS (9.7-12.2) H 08/24/18 12:44 INR 1.5 08/24/18 12:44 APTT 34.7 SECONDS (21-34) H D 08/25/18 21:22 Sodium 136 mmol/L (132-148) 08/25/18 06:35 Potassium 3.9 mmol/L (3.6-5.2) 08/25/18 06:35 Chloride 102 mmol/L (98-107) 08/25/18 06:35 Carbon Dioxide 25 mmol/L (22-30) 08/25/18 06:35 Anion Gap 12 (10-20) 08/25/18 06:35 BUN 8 mg/dL (9-20) L 08/25/18 06:35 Creatinine 0.8 mg/dL (0.8-1.5) 08/25/18 06:35 Est GFR ( Amer) > 60 08/25/18 06:35 Est GFR (Non-Af Amer) > 60 08/25/18 06:35 POC Glucose (mg/dL) 185 mg/dL (65-110) H 08/26/18 06:14 Random Glucose 211 mg/dL (75-110) H 08/25/18 06:35 Hemoglobin A1c 6.7 % (4.2-6.5) H 08/26/18 06:44 Calcium 8.3 mg/dl (8.6-10.4) L 08/25/18 06:35 Total Bilirubin 0.8 mg/dL (0.2-1.3) 08/25/18 06:35 AST 33 U/L (17-59) 08/25/18 06:35 ALT 46 U/L (21-72) 08/25/18 06:35 Alkaline Phosphatase 67 U/L (38-126) 08/25/18 06:35 Total Creatine Kinase 82 U/L (55-170) 08/24/18 12:44 CK-MB (Mass) 0.70 ng/mL (0.0-3.38) 08/24/18 12:44 Troponin I < 0.0120 ng/mL (0.00-0.120) 08/24/18 12:44 Total Protein 7.1 g/dL (6.3-8.3) 08/25/18 06:35 Albumin 3.8 g/dL (3.5-5.0) 08/25/18 06:35 Globulin 3.3 gm/dL (2.2-3.9) 08/25/18 06:35 Albumin/Globulin Ratio 1.2 (1.0-2.1) 08/25/18 06:35 Triglycerides 44 mg/dL (0-149) D 08/25/18 06:35 Cholesterol 109 mg/dL (0-199) 08/25/18 06:35 LDL Cholesterol Direct 65 mg/dL (0-129) 08/25/18 06:35 HDL Cholesterol 43 mg/dL (30-70) 08/25/18 06:35 - Hospital Course Hospital Course: 58 YEARS OLD ADMITTED WITH BLURRY VISION OF LEFT EYE WITH TEMPORAL HEADACHE HAS H/O CAD/2 STENTS HTN T2DM AND PAROXYSMAL A. FIB ON XARELTO CLAIMS SAW OPTHALMOLOGY AND DECLARED NO EYE DEFECTS NEURO W/U WAS NEG MRI BRAIN SHOWED SINUSITIS AND MASTOIDITIS WHICH APPEARS TO BE CAUSE OF HEADACHE OUT PT ENT Discharge Exam - Head Exam Head Exam: ATRAUMATIC, NORMAL INSPECTION, NORMOCEPHALIC Discharge Plan - Follow Up Plan Condition: GOOD Disposition: HOME/ ROUTINE
[2018-08-26 16:50] VITALS: PULSE 62
[2018-08-26 16:56] VITALS: BP 159/85; O2SAT 96
--- NOTE | 2018-08-26 17:26 | CP.PCM.PN ---
Subjective - Date & Time of Evaluation Date of Evaluation: 08/26/18 Time of Evaluation: 17:25 - Subjective Subjective: PATIENT SEEN AND EXAMINED AT THE BEDSIDE Objective - Vital Signs/Intake and Output Vital Signs (last 24 hours): Temp Pulse Resp BP Pulse Ox 97.9 F 62 20 159/85 H 96 08/26/18 15:30 08/26/18 16:00 08/26/18 15:30 08/26/18 15:30 08/26/18 15:30 Intake and Output: 08/26/18 08/26/18 06:59 18:59 Intake Total 500 Balance 500 - Medications Medications: Current Medications Acetaminophen (Tylenol 325mg Tab) 650 mg PO Q6 PRN PRN Reason: 3-7 pain Last Admin: 08/24/18 19:54 Dose: 650 mg Apixaban (Eliquis) 5 mg PO BID [facility] Last Admin: 08/26/18 17:17 Dose: 5 mg Aspirin (Aspirin Chewable) 81 mg PO DAILY [facility] Last Admin: 08/26/18 09:40 Dose: 81 mg Atenolol (Tenormin) 25 mg PO DAILY [facility] Last Admin: 08/26/18 09:40 Dose: 25 mg Famotidine (Pepcid) 20 mg PO DAILY [facility] Last Admin: 08/26/18 09:40 Dose: 20 mg Glipizide (Glucotrol) 10 mg PO ACB [facility] Last Admin: 08/26/18 08:13 Dose: 10 mg Insulin Human Regular (Novolin R) 0 unit SC [facility]; Protocol Last Admin: 08/26/18 17:16 Dose: 3 units Losartan Potassium (Cozaar) 25 mg PO DAILY [facility] Last Admin: 08/26/18 09:40 Dose: 25 mg Repaglinide (Prandin) 2 mg PO ACTID [facility] Last Admin: 08/26/18 17:17 Dose: 2 mg Rosuvastatin Calcium (Crestor) 20 mg PO HS [facility] Last Admin: 08/25/18 21:22 Dose: 20 mg - Labs Labs: 08/25/18 06:35 08/25/18 06:35 PT 16.3 SECONDS (9.7-12.2) H 08/24/18 12:44 INR 1.5 08/24/18 12:44 APTT 34.7 SECONDS (21-34) H D 08/25/18 21:22 Assessment and Plan - Assessment and Plan (Free Text) Assessment: FOLLOW UP WITH DR ROUSSEAU IN HIS OFFICE FOLLOW UP WITH ENT DOCTOR OUT PATIENT ADDRESS THE FINDING OF BRAIN MRI THAT SHOWED SINUSITIS AND MASTOIDITIS AT YOUR VISIT PHYSICAL THERAPY AND OCCUPATIONAL THERAPY FOR DIPLOPIA PER NEUROLOGIST DR BARRY PATIENT IS REQUIRED TO HAVE AN EYE PATCH AND OUT PATIENT PHYSICAL FOR ROAD TEST TO CLEAR HIM BEFORE DRIVING PER DR BARRY CONTINUE HOME MEDICATION NEW PRESCRIPTION GIVEN ELIQUIS 5 MG PO TWICE A DAY AUGMENTIN PO FOR 7 DAYS STOP TAKING XARELTO AND PLAVIX ACTIVITY TOLERATED CALL DR ROUSSEAU OR GO TO THE EMERGENCY ROOM IF SYMPTOM RETURN OR WORSENING
== END 2018-08-26 18:07 | disposition home or self-care (01) ==
LOC: C.ER 11:39 → C.9E 16:11 → C.6T 17:02
PROVIDERS: ADMIT Internal Medicine Cardiovascular Disease; ATTEND Internal Medicine Cardiovascular Disease
DX: M31.6 Other giant cell arteritis (principal); E78.5 Hyperlipidemia, unspecified; I10 Essential (primary) hypertension; I48.0 Paroxysmal atrial fibrillation; Z87.891 Personal history of nicotine dependence; Z95.5 Presence of coronary angioplasty implant and graft; H34.9 Unspecified retinal vascular occlusion
CPT/HCPCS: 36415; 70450; 70496; 70498; 70551; 80053; 80061; 82550; 82553; 82948; 83036; 84484; 85025; 85027; 85610; 85651; 85730; 93005; 99285; G0378; J1644; J2920